=== PATIENT | female | born 1960 | race Caucasian/White ===

== ENCOUNTER → 2017-07-26 | Outpatient (CLI) | payer OTHER ==
[2017-07-26 12:41] LABS: ALT/SGPT 38 U/L (12-78); BLOOD UREA NITROGEN 20 mg/dl (7-18); BUN/CREATININE RATIO 24.6 (10-20); CALCIUM 9.4 mg/dl (8.5-10.1); CARBON DIOXIDE 28 mmol/L (21-32); CHLORIDE 101 mmol/L (98-107); CHOLESTEROL 205 mg/dl (0-200); CREATININE 0.82 mg/dl (0.60-1.20); GLUCOSE 159 mg/dl (70-99); POTASSIUM 4.1 mmol/L (3.5-5.1); SODIUM 137 mmol/L (136-145); TRIGLYCERIDES 261 mg/dl (0-150); VERY LOW DENSITY LIPOPROT CALC 52 mg/dl
[2017-07-26 12:46] LABS: ESTIMATED AVERAGE GLUCOSE 177 mg/dl; HA1C FLAG Normal (Normal)
[2017-07-26 12:50] LABS: ALB/GLOB RATIO 1.2 (0.9-2); ALKALINE PHOSPHATASE 81 U/L (45-117); AST/SGOT 20 U/L (15-37); CHOLESTEROL/HDL RATIO 6.6; HDL CHOLESTEROL 31 mg/dl; LDL CHOLESTEROL CALCULATED 122 mg/dl
[2017-07-26 13:19] LABS: RATIO 52.8 mcg/mg (0-30.0)
== END | disposition home or self-care (01) ==
LOC: C.LABBFT 10:43
PROVIDERS: ATTEND Physician Assistant
DX: E78.5 Hyperlipidemia, unspecified (principal); E11.9 Type 2 diabetes mellitus without complications

== ENCOUNTER 2021-01-03 09:10 | Observation (INO) ==
--- NOTE | 2020-12-23 12:42 | PAT Medication Instructions ---
Medication Instructions Date of Service December 23, 2020 Home Medications Medication Instructions Recorded Amanda Rojas #1 ea 12/18/20 tramadol 50 mg tablet 50 mg PO Q8H PRN #30 tab 12/18/20 tramadol 50 mg tablet 50 mg PO Q8H PRN diclofenac sodium 75 mg PO BID glipizide 10 mg PO BID losartan 50 mg PO HS metformin 850 mg PO TID omeprazole 20 mg PO HS vitamins A,C,D-dzbo-zuough [PreserVision AREDS] 1 cap PO BID ASK your surgeon for instructions diclofenac sodium 75 mg PO BID STOP taking 2 weeks before surgery If surgery is within 2 weeks, stop taking as soon as possible. vitamins A,C,M-ahlh-ochprh [PreserVision AREDS] 1 cap PO BID DO NOT take the morning of surgery glipizide 10 mg PO BID metformin 850 mg PO TID Take morning of surgery With a small sip of water, OTHERWISE NOTHING TO EAT OR DRINK AFTER MIDNIGHT: tramadol 50 mg tablet 50 mg PO Q8H PRN (if needed, may be taken up to four hours before surgery) Take evening before surgery tramadol 50 mg tablet 50 mg PO Q8H PRN (if needed) glipizide 10 mg PO BID losartan 50 mg PO HS metformin 850 mg PO TID omeprazole 20 mg PO HS Other Notes If you have any questions please call us at [phone] or [phone] or [phone] or [phone]
--- NOTE | 2020-12-24 13:46 | Anesthesiology Consultation ---
Date of Service December 24, 2020 Assessment & Plan (1) Encounter for pre-operative examination: COVID Status: As of 12/24 assessment, patient denies travel to endemic area, known exposure/sick contacts, or symptoms of COVID19. Patient advised to adhere to social distancing guidelines, wear a mask in public and avoid large crowds or unnecessary travel in the 2 weeks leading up to surgery. Preoperative COVID19 testing to be completed prior to surgery per surgeon's arrangements (01/01). Patient encouraged to be extra cautious/conscientious with COVID precautions between COVID testing and surgery. Pt is fully vaccinated. BSG AM DOS Chart Review Chart Review: Acceptable Risk for Surgery (pending chest CT 12/26) and Patient seen in Pre Admission Testing Teaching & Discussion Instructed NPO after midnight before surgery, except medications with 15 cc of water. Medication instructions provided according to the PAT guidelines. History Surgery Operation Date: 01/03/21 13:30 Proposed Procedures p Left Anterior Total Hip Replacement - Dheeraj Carlson, Height/Weight Height: 5 ft 7.5 in Weight: 110.5 kg Allergies Allergy/AdvReac Type Severity Reaction Status Date / Time No Known Allergies Allergy Unknown Verified 12/20/20 14:17 Medications Home Medications Medication Instructions Recorded Confirmed Last Taken Wheeled Walker #1 ea 12/18/20 12/18/20 Unknown tramadol 50 mg tablet 50 mg PO Q8H PRN #30 tab 12/18/20 12/20/20 Unknown diclofenac sodium 75 mg PO BID 12/20/20 12/20/20 Unknown glipizide 10 mg PO BID 12/20/20 12/20/20 Unknown losartan 50 mg PO HS 12/20/20 12/20/20 Unknown metformin 850 mg PO TID 12/20/20 12/20/20 Unknown omeprazole 20 mg PO HS 12/20/20 12/20/20 Unknown vitamins A,C,Z-qfps-woxhjq 1 cap PO BID 12/20/20 12/20/20 Unknown [PreserVision AREDS] Past Medical History Medical History Anxiety Diabetes mellitus, type 2 GERD (gastroesophageal reflux disease) Hypertension Macular degeneration Obesity Osteoarthritis Peripheral neuropathy "MILD" Exercise / Class Metabolic Activity II 4-5 Yardwork/Stairs/Walk up hill Past Family History Family History Father Family history of diabetes mellitus Past Surgical History Surgical History Family history of reaction to anesthesia NAUSEA/VOMITTING History of anesthesia reaction SLOW TO WAKE UP History of bilateral tubal ligation History of esophagogastroduodenoscopy (EGD) [place] teeth removed Past Anesthesia History No Hx of Anesthesia Complications (other than "slow to wake", no reintubation or unplanned admission) and No Family Hx of Anesthesia Complications (other than PONV) History of PONV No Hx of PONV and Hx of Motion Sickness Social History Smoking Status: Never smoker Do You Dip or Chew Tobacco: No Hx Alcohol Use: Yes alcohol intake frequency: holidays/special occasions only (few times per year) substance use type: does not use Review of Systems Pt denies any recent chest pain, shortness of breath, palpitations, fever, URI, or uncontrolled acid reflux. +seasonal allergy symptoms (cough) Physical Exam Vital Signs BP: 147/95 P: 97bpm SPO2: 94% RA T: 98.6 F R: 16 ENMT Mouth: + dental restorations (crown on upper L incisor) and + chipped teeth (few molars); no loose teeth Thyromental Distance: > or= 3.5 Finger Breadths Mallampati Class: I Neck normal visual inspection, + limited neck extension and + facial hair (hirsuit) Respiratory normal respiratory effort, lungs clear to auscultation Cardiovascular RRR, no murmur, no edema Testing Laboratory Results 12/24/20 13:58 12/24/20 13:58 PT 10.3 Seconds (9.0-12.0) 12/24/20 13:58 INR 1.0 (0.9-1.1) 12/24/20 13:58 APTT 22.5 Seconds (21.0-31.0) 12/24/20 13:58 Hemoglobin A1c 7.8 % (4.5-5.6) H 12/24/20 13:58 Blood Type A Positive 12/24/20 13:58 Antibody Screen NEGATIVE 12/24/20 13:58 Electrocardiogram Date: 12/24/20 Findings: + NSR @ (91bpm) Left axis deviation. Chest X-Ray Date: 12/24/20 FINDINGS: Lung volumes are normal. There is a possible 1.1 cm left upper lobe opacity. There is no pneumothorax or pleural effusion. Cardiac size is normal. Mediastinal contours are normal. There is no evidence for pulmonary edema. IMPRESSION: Possible 1.1 cm left upper lobe nodular opacity. This is likely artifactual however a chest CT is recommended to exclude a pulmonary nodule. ACT 112: Positive. There are findings on this exam that require communication between the performing entity and the patient following Patient Test Result Information Act ([place] Act 112) guidelines. Surgeon's office notified, they have arranged for chest CT for 12/26/20.
--- NOTE | 2020-12-24 14:18 | XRay Report ---
XR chest Pre-admission PA/Lat CLINICAL HISTORY: Preoperative evaluation. COMPARISON STUDY: No previous studies for comparison. FINDINGS: Lung volumes are normal. There is a possible 1.1 cm left upper lobe opacity. There is no pn eumothorax or pleural effusion. Cardiac size is normal. Mediastinal contours are normal. There is no evidence for pulmonary edema. IMPRESSION: Possible 1.1 cm left upper lobe nodular opacity. This is likely artifactual however a alexei st CT is recommended to exclude a pulmonary nodule. ACT 112: Positive. There are findings on this exam that require communication between the performing entity and the patient following Patient Test Result Information Act ([place] Act 112) guidelines. Electronically signed by: Jaime Haddad M.D. 12/24/2020 2:17 PM
[2020-12-24 14:28] LABS: Basophils # (auto) 0.01 K/uL (0-0.2); Basophils % (auto) 0.1 %; Eosinophils # (auto) 0.16 K/uL (0-0.5); Eosinophils % (auto) 1.7 %; Hematocrit (blood only) 40.7 % (37-47); Hemoglobin 13.8 g/dL (12.0-16.0); Immature Granulocytes # (auto) 0.03 K/uL (0.00-0.02); Immature Granulocytes % (auto) 0.3 %; Lymphocytes # (auto) 3.79 K/uL (1.2-3.4); Lymphocytes % (auto) 39.4 %; Mean Corpuscular Hemoglobin 28.9 pg (25-34); Mean Corpuscular Hgb Conc 33.9 g/dL (32-36); Mean Corpuscular Volume 85.1 fL (80-100); Mean Platelet Volume 9.6 fL (7.4-10.4); Monocytes # (auto) 0.61 K/uL (0.11-0.59); Monocytes % (auto) 6.3 %; Neutrophils # (auto) 5.03 K/uL (1.4-6.5); Neutrophils % (auto) 52.2 %; Platelet Count 260 K/uL (130-400); RDW Coefficient of Variation 13.8 % (11.5-14.5); RDW Standard Deviation 42.5 fL (36.4-46.3); Red Blood Count 4.78 M/uL (4.2-5.4); White Blood Count 9.63 K/uL (4.8-10.8)
[2020-12-24 14:41] LABS: Partial Thromboplastin Ratio 0.9; Partial Thromboplastin Time 22.5 Seconds (21.0-31.0); Prothrombin Time 10.3 Seconds (9.0-12.0)
[2020-12-24 16:20] LABS: BUN Creatinine Ratio 21.5 (10-20); Calcium 10.2 mg/dl (8.5-10.1); Creatinine Clr Calc Pharmacy 86.7 ml/min; Est GFR (African American) 82.2 ml/min; Est GFR (Non-African American) 70.9 ml/min; Potassium 4.1 mmol/L (3.5-5.1)
--- NOTE | 2020-12-24 17:10 | Electrocardiogram Report ---
Test Reason : Blood Pressure : / mmHG Vent. Rate : 091 BPM Atrial Rate : 091 BPM P-R Int : 132 ms QRS Dur : 072 ms QT Int : 374 ms P-R-T Axes : 067 -34 060 degrees QTc Int : 460 ms Normal sinus rhythm Left axis deviation Abnormal ECG Confirmed by David Vo ([id number]) on 12/24/2020 5:09:53 PM Referred By: Dheeraj Carlson Confirmed By:Marv Vo
[2020-12-25 07:30] LABS: Estimated Average Glucose 177 mg/dl; Hemoglobin A1C 7.8 % (4.5-5.6)
--- NOTE | 2021-01-02 12:54 | History & Physical Report ---
Date of Service January 02, 2021 Assessment & Plan (1) Osteoarthritis of left hip: We will proceed with a left anterior total hip arthroplasty. Postoperatively she will be started on aspirin for DVT prophylaxis and kept overnight in the hospital for postoperative medical management. She plans to use home health set up by the hospital upon discharge. History of Present Illness Chief Complaint: Osteoarthritis of the left hip . Primary Care Provider: Brady Posey PA-C Carmen is a pleasant 60-year-old female who is been doing chronic worsening left hip and groin pain. X-rays and clinical examination have been diagnostic for advanced osteoarthritis over the left hip. After failing conservative treatment, she has elected proceed with a left total hip arthroplasty. . Allergies Allergy/AdvReac Type Severity Reaction Status Date / Time No Known Allergies Allergy Unknown Verified 12/20/20 14:17 Home Medications Medication Instructions Recorded Confirmed Type Wheeled Walker #1 ea 12/18/20 12/18/20 Rx tramadol 50 mg tablet 50 mg PO Q8H PRN #30 tab 12/18/20 12/20/20 Rx diclofenac sodium 75 mg PO BID 12/20/20 12/20/20 History glipizide 10 mg PO BID 12/20/20 12/20/20 History losartan 50 mg PO HS 12/20/20 12/20/20 History metformin 850 mg PO TID 12/20/20 12/20/20 History omeprazole 20 mg PO HS 12/20/20 12/20/20 History vitamins A,C,O-ibem-nqbtso 1 cap PO BID 12/20/20 12/20/20 History [PreserVision AREDS] Past Med/Surg History Medical History Anxiety Diabetes mellitus, type 2 GERD (gastroesophageal reflux disease) Hypertension Macular degeneration Obesity Osteoarthritis Peripheral neuropathy "MILD" Surgical History Family history of reaction to anesthesia NAUSEA/VOMITTING History of anesthesia reaction SLOW TO WAKE UP History of bilateral tubal ligation History of esophagogastroduodenoscopy (EGD) [place] teeth removed Family History Father Family history of diabetes mellitus Social History Smoking Status: Never smoker Second Hand Exposure: Yes ( A CHILD); Hx Alcohol Use: Yes Preferred Language: Vietnamese Wood Heel Flap Trimmer Required: No Beliefs That Will Affect Care: None Current Living Situation: Spouse Feels Safe at Home: Yes Assistive Devices: Contacts and Glasses Review of Systems All systems reviewed & are unremarkable except as noted in HPI & below. Physical Exam On physical examination of the left hip, she walks with a antalgic gait. Her left leg is a little shorter than her right. She has pain in her groin with forced internal and external rotation. Constitutional WD/WN, vitals as above Eyes PERRL, conjunctivae normal, anicteric sclerae ENMT external ear and nose normal, oropharynx normal Neck trachea midline, no thyromegaly Respiratory normal respiratory effort Cardiovascular RRR, no murmur, no edema Gastrointestinal (Abdomen) normal bowel sounds, soft, nontender, no hepatosplenomegaly Psychiatric A+Ox3, euthymic affect Results & Data Results & Data Laboratory Results . Diagnostic Findings X-rays of the left hip do show advanced osteoarthritis with joint space narrowi ng osteophyte formation, and ejnp-ao-[id number] articulation. . PG Care Time/CCT Total # of Minutes Spent Total Time Spent with Patient: Total time spent is greater than 50% in coordination of care (as documented) at patient's floor/unit and/or counseling patient: Coding Level of Care Code None Diagnoses Osteoarthritis of left hip M16.12
[~2021-01-03 09:10] MED LIST: ACETAMINOPHEN 500 MG TAB PO SCH; BUPIVACAINE 0.5 % 5 MG/1 ML PF 10ML VIAL ONE; FAMOTIDINE 20 MG TAB PO SCH; GABAPENTIN 600 MG DOSE PO SCH; LR 500ML BOLUS, THEN 15ML/HR IV SCH; LR 60ML/HR IV SCH; ROPIVACAINE 0.5% HCL/PF 150 MG, BUPIVACAINE 0.75% MPF 20 ML, EPINEPHrine 30MG/30ML (OR ... INSTIL SCH; TRANEXAMIC ACID 1,000 MG **IV Intra-op IV SCH; TRANEXAMIC ACID 1,000 MG **IV Pre-op IV SCH; ceFAZolin 2000MG 2,000 MG/15 ML SYR IV SCH; dexAMETHasone 4 MG TAB PO SCH
[2021-01-03] MEDS ORDERED: LIDOCAINE 2% 2 ML VIAL/AMP(20MG/ML) INFIL ONE (09:37)
[2021-01-03] MEDS ORDERED: MIDAZOLAM HCL 1 MG/ML 2ML VIAL ONE (09:37)
[2021-01-03] MEDS ORDERED: ONDANSETRON INJ 2 MG/ML 2 ML VIAL ONE (09:37)
[2021-01-03] MEDS ORDERED: PROPOFOL IV EMULSION 10 MG/ML 20 ML VIAL IV ONE (09:37)
--- NOTE | 2021-01-03 10:14 | History & Physical Bridge Note ---
Date of Service January 03, 2021 History & Physical Bridge Note I have examined the patient, reviewed the History & Physical and in the interval since the performance of the History & Physical I have noted the following changes of clinical significance: no changes noted
[2021-01-03] MEDS ORDERED: KETOROLAC 30 MG/ML VIAL IV PRN (10:30)
[2021-01-03] MEDS ORDERED: ATROPINE SULFATE 0.1 MG/ML 10ML SYR IV PRN (10:30)
[2021-01-03] MEDS ORDERED: ONDANSETRON INJ 2 MG/ML 2 ML VIAL IV PRN ×2 (10:30→14:40)
[2021-01-03] MEDS ORDERED: ePHEDrine sulfate 50 MG/ML AMP IV PRN (10:30)
[2021-01-03] MEDS ORDERED: HYDROmorphone INJ 1 MG/ML SYRINGE IV PRN (10:30)
[2021-01-03] MEDS ORDERED: ORTHO JOINT ANESTHETIC ONE (10:40)
[2021-01-03] MEDS ORDERED: PHENYLEPHRINE 100MCG/ML 5ML SYR ONE (11:51)
--- NOTE | 2021-01-03 12:44 | Operative Report ---
PG Post Operative Report Pre & Post Diagnosis Operation Date: 01/03/21 11:40 Pre-Op Diagnosis: Left Hip Osteoarthritis Post-Op Diagnosis: Left Hip Osteoarthritis I identified the patient and participated in the time-out.: Yes Procedure Operation Date: 01/03/21 11:40 Actual Procedures p Left Anterior Total Hip Replacement(Left) - Dheeraj Carlson DO Surgeon Dheeraj Carlson, Building Contractor Dheeraj Carrillo PAC Estimated Blood Loss 200 Findings Consistent with Post-Op Diagnosis Specimens Right femoral head Complications none Disposition Disposition: Recovery Room Indications Carmen is a pleasant 60-year-old female who is been dealing chronic increasing left hip pain. X-rays and clinical examination been diagnostic for advanced osteoarthritis of the left hip. After failing conservative treatment, she elected proceed with a left total hip arthroplasty. Description of Procedure Implants used I used a [employer] Avenir Complete total hip arthroplasty system with a size 2 Avenir Complete collared stem, a 52 mm G7 cup with a 25mm screw, an E1 polyethylene liner, a 36 mm ceramic head with a 0 neck. Carmen arrived at the hospital for the above procedure. She was seen in the preoperative holding area and the operative extremity was identified and signed. She was given a spinal anesthetic, a preoperative antibiotic, and TXA. She was then taken back to the operating room and laid on the table in the supine position. She was given basic sedation. The operative leg was secured to a Puristst leg positioner. The hip was then prepped and draped in sterile fashion. A timeout was done and the patient and the operative extremity was properly identified. An anterior approach was used. Dissection was taken down through the fascia and the tensor muscle belly was retracted laterally and the rectus was retracted medially. The circumflex vessels were identified and ligated. The capsule was then incised and tagged for later repair. The femoral neck was then cut and the femoral head was removed. The acetabulum was exposed. Time was spent doing a complete circumferential labral release. Sequential reaming of the acetabulum up to a size 51 reamer was done. Final reamings were done under fluoroscopy to ensure appropriate version. A Biomet 52 mm G7 cup was then impacted into place. A single 25 mm screw was placed. The E1 polyethylene liner was then snapped into place. Surrounding soft tissues were then injected with 100 cc of an orthopedic pain control cocktail. The proximal femur was then exposed. Sequential broaching up to a size 2 broach was done. Off that broach a size 36 head with a 0 neck was trialed. The hip was reduced and fluoroscopic images showed anatomic alignment of the implants in acceptable length. The broach was removed. The final size 2 Avenir complete collared stem was then impacted into place. A ceramic 36 mm head with a 0 neck was then impacted onto the stem and the hip was reduced. Final fluoroscopic images showed anatomic alignment of the hip. The capsule was then closed with #1 Vicryl suture. A dilute betadyne lavage was then done for 3 minutes. The joint was then irrigated with normal saline solution. The fascia was closed with #1 PDS suture. Skin was closed with 2-0 Vicryl, margarito, and a Silverlon dressing. She was then transferred to a hospital bed and taken to the post anesthesia care unit in stable condition. She tolerated the procedure well. Dheeraj Carrillo PA-C, was present for the entire procedure. He was critical for patient positioning, prepping, draping, retraction exposure, wound closure and application of sterile dressing. I attest to the content of the Intraoperative Record and any orders documented therein. Any exceptions are noted below.
--- NOTE | 2021-01-03 12:48 | Fluoroscopy Report ---
FL hip LT 1V CLINICAL HISTORY: LEFT ANTERIOR HIP COMPARISON STUDY: May 2020 FLUOROSCOPY TIME: 15 seconds. NUMBER OF FLUOROSCOPIC IMAGES: 4 FINDINGS: 4 intraoperative fluoroscopic spot images were performed during the placement of a total le ft hip arthroplasty. The final image demonstrates a total left hip arthroplasty. There is no dislocat ion. IMPRESSION: Intraoperative fluoroscopic spot images obtained during the placement of a total left hi p arthroplasty. ACT 112: Negative or not required by law. Electronically signed by: Alexandr Mcwilliams M.D. 01/03/2021 12:47 PM
--- NOTE | 2021-01-03 14:02 | XRay Report ---
SINGLE VIEW PELVIS; SINGLE VIEW LEFT HIP CLINICAL HISTORY: Postoperative examination. FINDINGS: An AP portable view of the hips and pelvis with a crosstable lateral portable view of the l eft hip are obtained. A bipolar left hip arthroplasty is in near-anatomic alignment. No acute fractur e is identified. There are expected postoperative changes overlying the left hip including skin clips , subcutaneous gas, and soft tissue swelling. Moderate degenerative joint space narrowing is seen in the right hip. IMPRESSION: Expected postoperative findings status post left hip arthroplasty. No acute fracture is s een. ACT 112: Negative or not required by law. Electronically signed by: Aj Alegre M.D. 01/03/2021 2:00 PM
--- NOTE | 2021-01-03 14:12 | Anesthesiology Progress Note ---
Date of Service January 03, 2021 Anesthesia Post Procedure Vital Signs Vital Signs: Temp Pulse Pulse Resp BP BP Pulse Ox 01/03/21 14:00 88 12 137/78 97 01/03/21 13:45 36.4 C L 90 17 138/70 96 01/03/21 13:35 84 14 125/72 96 01/03/21 13:25 84 16 127/76 95 01/03/21 13:15 90 17 132/81 95 01/03/21 13:05 92 H 14 135/81 94 01/03/21 12:59 36.4 C L 96 H 17 131/69 94 01/03/21 09:55 37.0 C 97 H 20 161/80 H 168/102 H 96 Pain Intensity Left Hip: Pain Intensity: 0 Transfer of Care Handoff Completed per policy Notes Mental Status: alert / awake / arousable Patient Amnestic to Procedure: Yes Nausea / Vomiting: adequately controlled Pain: adequately controlled Airway Patency, RR, SpO2: stable & adequate BP & HR: stable & adequate Hydration State: stable & adequate Anesthetic Complications: no major complications apparent
[2021-01-03] MEDS ORDERED: bisacodyL 10 MG SUPP PR PRN (14:40)
[2021-01-03] MEDS ORDERED: NALOXONE HCL 0.4 MG/1 ML VIAL/CARP IV PRN (14:40)
[2021-01-03] MEDS ORDERED: oxyCODONE HCL IR 5 MG TAB (IMMEDIATE RELEASE) PO PRN (14:40)
[2021-01-03] MEDS ORDERED: MAGNESIUM HYDROXIDE SUSP 30 ML UDC PO PRN (14:40)
[2021-01-03] MEDS ORDERED: METOCLOPRAMIDE HCL INJ 5 MG/ML 2 ML VIAL IV PRN (14:40)
[2021-01-03] MEDS ORDERED: HYDROmorphone INJ 0.5 MG/0.5 ML SYR IV PRN (14:40)
[2021-01-03] MEDS: SODIUM CHLORIDE 0.9% 1000ML 1,000 ML IV SCH (15:02)
[2021-01-03] MEDS: ACETAMINOPHEN 500 MG TAB PO SCH ×2 (16:05→20:50)
[2021-01-03] MEDS: KETOROLAC 30 MG/ML VIAL IV SCH ×2 (16:05→20:50)
[2021-01-03] MEDS ORDERED: PHARMACY GLYCEMIC MGMT CONSULT PRN (16:53)
[2021-01-03] MEDS ORDERED: INSULIN GLARGINE SOLOSTAR 100 UNITS/ML 3 ML PEN SC STA (16:58)
[2021-01-03] MEDS ORDERED: CARBOHYDRATES FOR HYPOGLYCEMIA PO PRN (17:00)
[2021-01-03] MEDS ORDERED: GLUCOSE 10 TABS/TUBE PO PRN (17:00)
[2021-01-03] MEDS ORDERED: DEXTROSE 50% 50 ML SYRINGE IV PRN (17:00)
[2021-01-03] MEDS ORDERED: GLUCOSE 40% GEL 15 GM TUBE PO PRN (17:00)
[2021-01-03] MEDS ORDERED: GLUCAGON FOR INJ 1 MG VIAL IM PRN (17:00)
[2021-01-03] MEDS: INSULIN ASPART 100 UNITS/ML 3 ML PEN SC SCH ×2 (17:32→20:49)
[2021-01-03] MEDS: ceFAZolin 2000MG 2,000 MG/15 ML SYR IV SCH (18:16)
[2021-01-03] MEDS: DOCUSATE SODIUM 100 MG CAP PO SCH (20:52)
[2021-01-03] MEDS: ASPIRIN 81 MG ECTAB PO SCH (20:52)
[2021-01-03] MEDS ORDERED: SENNA 8.6 MG TAB PO SCH (21:00)
[2021-01-03] MEDS ORDERED: LOSARTAN POTASSIUM 50 MG TAB PO SCH (21:00)
[2021-01-03] MEDS ORDERED: PANTOprazole 40 MG TAB PO SCH (21:00)
[2021-01-04] MEDS: SODIUM CHLORIDE 0.9% 1000ML 1,000 ML IV SCH (01:06)
[2021-01-04] MEDS: ACETAMINOPHEN 500 MG TAB PO SCH ×2 (03:31→14:36)
[2021-01-04] MEDS: ceFAZolin 2000MG 2,000 MG/15 ML SYR IV SCH (03:31)
[2021-01-04] MEDS: KETOROLAC 30 MG/ML VIAL IV SCH ×2 (03:31→09:16)
--- NOTE | 2021-01-04 07:38 | Orthopedic Progress Note ---
Date of Service January 04, 2021 Assessment & Plan (1) Status post left hip replacement: Overall she is doing very well. She is having much pain in the left hip. She was seen by physical therapy today for ambulation and range of motion exercises. She is on aspirin for DVT prophylaxis. She can be discharged home later today. She will follow-up with orthopedics in 2 weeks. eJthro Morales was seen and examined at bedside this morning. Overall she is doing very well. She denies any pain in the left hip. She has been up and ambulating to the bathroom. She has no complaints.. Review of Systems All systems reviewed & are unremarkable except as noted in HPI & below. Physical Exam On physical examination of the left hip, the dressing is clean and dry. Her leg lengths are equal. She has active dorsiflexion plantarflexion of her left ankle. Sensation is intact throughout.. Results & Data Results & Data Laboratory Results . Diagnostic Findings Postoperative x-rays of the left hip show the prosthesis to be in anatomic alignment without any evidence of fracture, dislocation, or loosening. PG Care Time/CCT Total # of Minutes Spent Total Time Spent with Patient: Total time spent is greater than 50% in coordination of care (as documented) at patient's floor/unit and/or counseling patient: Coding Level of Care Code 23617 Post Operative Follow-Up Diagnoses Status post left hip replacement Z96.642
--- NOTE | 2021-01-04 07:39 | Discharge Summary ---
Date of Service January 04, 2021 Admission HPI (Per Admitting) Carmen is a pleasant 60-year-old female who is been doing chronic worsening left hip and groin pain. X-rays and clinical examination have been diagnostic for advanced osteoarthritis over the left hip. After failing conservative treatment, she has elected proceed with a left total hip arthroplasty. . Admission Exam (Per Admitting) On physical examination of the left hip, she walks with a antalgic gait. Her left leg is a little shorter than her right. She has pain in her groin with forced internal and external rotation. Principal Diagnosis Same as "Discharge Diagnosis" noted below under Discharge Instructions. Discharge Exam On physical examination of the left hip, the dressing is clean and dry. Her leg lengths are equal. She has active dorsiflexion plantarflexion of her left ankle. Sensation is intact throughout.. Discharge Data Procedures Performed Operation Date: 01/03/21 11:40 Actual Procedures p Left Anterior Total Hip Replacement(Left) - Dheeraj Carlson DO Ordered Studies 01/03/21 11:40 FL hip LT 1V Routine Hospital Course (1) Status post left hip replacement: On January 03, 2021 Carmen arrived at [facility] and underwent a left anterior total hip arthroplasty without complication. She had a spinal a nesthetic. Postoperatively she was started on aspirin for DVT prophylaxis and transferred to the general orthopedic floors. Her hospital course was uneventful. On postop day #1 her vital signs were stable and her pain was well controlled. She was able to participate well with physical therapy doing ambulation and range of motion exercises. She was then discharged home. She will follow-up with orthopedics in 2 weeks. PG Care Time/CCT Total # of Minutes Spent Total Time Spent with Patient: Total time spent is greater than 50% in coordination of care (as documented) at patient's floor/unit and/or counseling patient: Discharge Plan Discharge Items Patient Disposition: Home - Home Health Services Reason For Visit: Left Hip Osteoarthritis Discharge Diagnosis: Left hip replacement Activity: As commented below Non-emergency contact: Surgeon Call non-emergency contact if: your wound has increased redness and your wound has increased drainage Follow-up/Referrals: Brady Posey PA-C [Primary Care Provider] - Diet: Carb Consistent or DM2 Addtl Attending Provider Instructions: Activity and Therapy Recommendations: * If you are using [facility] then therapy will be provided at your home until they feel you have accomplished all of your goals. * If you are using [facility] then Physical Therapy will be provided until they feel you are ready to start Outpatient Physical Therapy. * If you are not using home therapy then Outpatient Physical Therapy should start about 3-5 days from your day of surgery. Therapy will last about 6-10 weeks * You were shown a series of exercises in the hospital. Do these exercises three times each day including the exercises you were shown in physical therapy. * Get up and walk several times each day.~ For the first four weeks, try not to stand or walk for more than one hour at a time. If you do stand or walk for more than one hour, you will not hurt anything, but your leg will likely swell.~~ * As you feel comfortable, you may change from the walker or crutches to a cane and~then to independent walking. Medications: * Narcotic You will likely be sent home from the hospital with a prescription for the narcotic pain medication that worked best throughout your stay. * Aspirin Most patients will be required to take Aspirin 81mg twice a day for 6 weeks after surgery. This is obtained [id number] and a prescription is not necessary. * Other medications may be prescribed for specific circumstances. If you have any questions, please call the office at . * Resume previous home medications unless otherwise instructed TEDs/Elastic Stockings: The white elastic stockings help limit swelling and prevent blood clots from forming in your legs. The more you wear them, the more they work. Wear them for six weeks. Dressing Care: Leave the Silverlon dressing in place for 7 days. After 7 days you may remove the dressing. If the incision is not draining then you may leave the margarito open to air. If there is a little bit of drainage or if the margarito are getting stuck on your clothing then cover the incision with a dry dressing. The margarito will be removed at your 2 week follow-up appointment. Showering: You may shower with the Silverlon dressing in place. Do not let the shower spray hit the dressing directly. Pat the Silverlon dressing dry. If the dressing becomes wet underneath, then simply remove the dressing. Keep the incision dry until you are 7 days out from the day of surgery. After 7 days you may remove the Silverlon dressing and shower with the margarito exposed. Let soapy water run over the margarito and pat them dry. Do not scrub or soak the incision. Things To Watch For: * Drainage from the incision site that occurs more than one week after your surgery. * Increased redness at the incision site. * Fever above 102 degrees Fahrenheit. * Unusual chest pain or shortness of breath. * Call [facility] at with any of the above problems Follow-Up Visit: Follow-up with Dr. Carlson's PA (Dheeraj Carrillo) 2-3 weeks after your day of surgery. He will remove your margarito and answer any questions. If you have any additional questions or concerns, Dr Carlson is usually in the office at the same time and will be available An appointment was probably scheduled when you signed-up for surgery in the office. If you have any questions call Office Instructions: More detailed instructions as well as Frequently Asked Questions were provided in a folder by our office when you signed-up for surgery. Please review these instructions when you get home. If you have any further questions or concerns, please feel free to call the office at [phone] Pending Studies at Discharge: No Stand-Alone Forms: [facility] Medications and DC Order Prescriptions: New aspirin 81 mg Tablet,Delayed Release (Dr/Ec) 81 mg PO BID 42 Days Qty: 84 RF: 0 oxycodone 5 mg Tablet 5 mg PO Q4H PRN (Reason: pain) Qty: 30 RF: 0 Continued tramadol 50 mg tablet 50 mg PO Q8H PRN (Reason: pain) Qty: 30 RF: 0 (DME) Wheeled Walker Misc See Rx Instructions .MEDSUPPLY Qty: 1 RF: 0 losartan 50 mg Tablet 50 mg PO HS RF: 0 glipizide 10 mg Tablet 10 mg PO BID RF: 0 metformin 850 mg Tablet 850 mg PO TID RF: 0 omeprazole 20 mg Capsule,Delayed Release(Dr/Ec) 20 mg PO HS RF: 0 diclofenac sodium 75 mg Tablet,Delayed Release (Dr/Ec) 75 mg PO BID RF: 0 PreserVision AREDS [id number] Capsule 1 cap PO BID RF: 0 Discharge Orders: Discharge Order (Routine); Ordered 01/04/21 Ordered By: Dheeraj Carlson Admission Data Admit Date/Time: 01/03/21 13:06 Attending Provider: Dheeraj Carlson Admit Provider: Dheeraj Carlson Primary Care Provider: Brady Posey
[2021-01-04] MEDS ORDERED: MULTIVITAMIN TAB PO SCH (09:00)
[2021-01-04] MEDS: ASPIRIN 81 MG ECTAB PO SCH (09:16)
[2021-01-04] MEDS: DOCUSATE SODIUM 100 MG CAP PO SCH (09:16)
[2021-01-04] MEDS: INSULIN ASPART 100 UNITS/ML 3 ML PEN SC SCH ×2 (09:16→12:38)
[2021-01-04] MEDS: metFORMIN HCL 850 MG TAB PO SCH ×2 (09:18→12:38)
== END 2021-01-04 15:19 | disposition home health service (06) ==
LOC: ASU 09:10 → 3E 09:10

== ENCOUNTER 2022-04-09 10:45 | Observation (INO) ==
[2022-04-09] MEDS ORDERED: ASPIRIN CHEW 324 MG PO STA (11:42)
[2022-04-09] MEDS ORDERED: NITROGLYCERIN 2% OINTMENT 30GM TUBE EXT STA (11:42)
--- NOTE | 2022-04-09 11:53 | Emergency Department Note ---
History of Present Illness General Chief complaint: Hypertension Stated complaint: HIGH BLOOD PRESSURE, TIGHNESS IN CHEST Time Seen by Provider: 04/09/22 11:32 Source: patient History of Present Illness Provider complaint: High blood pressure and chest discomfort Onset (ago): day(s) 2 Location: chest Radiation: back Pain Consistency: + intermittent Quality: + other ("Muscle pain") Relieved By: + other (Rubbing on her chest and Xanax) Associated symptoms: no cough, no diaphoresis, no fever/chills, no headaches, no malaise, no nausea/vomiting, no shortness of breath or no weakness This is a 62-year-old female who presents with elevated blood pressures and chest pain intermittently since yesterday. The patient states that yesterday she was not feeling well so she took her blood pressure and was 170/110. She states over the summer its been running on the high side at about 140s. She was anxious and so she took her Xanax and her blood pressure came down to the 130s. At the same time she had developed chest discomfort which she has difficulty describing. She said that it feels like a muscle pain and is better when she rubs her chest. It does radiate to her back. She had no associated shortness of breath or diaphoresis or nausea. Her chest discomfort went away after her blood pressure came down. She made an appointment to see her doctor but decided to cancel it and come here today as she had another episode of not feeling well and her blood pressure was again elevated with a diastolic over 110. Again she developed the chest discomfort which she has difficulty describing. She has no shortness of breath, diaphoresis, lightheadedness or nausea. She denies any fever, cough or cold symptoms, abdominal pain, vomiting, diarrhea or urinary symptoms. She denies any leg pain or swelling. She does have a history of high cholesterol. She is compliant with her medications. She states that she had an illness in the spring of this year but tested negative for COVID. She had an EKG at that time which showed left atrial enlargement and they wanted to do a stress echocardiogram on her but she never followed up with them. She denies any family history of CAD. She never smoked. Home Medications Medication Instructions Recorded Confirmed Type Wheeled Walker #1 ea 12/18/20 04/09/22 Rx diclofenac sodium 75 mg 75 mg PO BID 12/20/20 04/09/22 History tablet,delayed release glipizide 10 mg tablet 10 mg PO BID 12/20/20 04/09/22 History omeprazole 20 mg capsule,delayed 20 mg PO HS 12/20/20 04/09/22 History release vitamins A,C,X-zcrh-reckdt 14,320 1 cap PO BID 12/20/20 04/09/22 History unit-226 mg-200 unit capsule (PreserVision AREDS) alprazolam 0.25 mg tablet 0.25 mg PO BID PRN Anxiety 04/09/22 04/09/22 History loratadine 10 mg tablet 10 mg PO DAILY 04/09/22 04/09/22 History losartan 100 mg tablet 100 mg PO HS 04/09/22 04/09/22 History metformin 500 mg tablet,extended 1,000 mg PO BID 04/09/22 04/09/22 History release 24hr semaglutide 0.25 mg or 0.5 mg (2 0.25 mg subcut WK 04/09/22 04/09/22 History mg/1.5 mL) subcutaneous pen injector (Ozempic) Allergies Allergy/AdvReac Type Severity Reaction Status Date / Time No Known Allergies Allergy Unknown Verified 04/09/22 15:16 Past Med/Surg History Medical History (Updated 04/09/22 @ 15:14 by Cuong Arizmendi MD) Anxiety Diabetes mellitus, type 2 GERD (gastroesophageal reflux disease) Hypertension Macular degeneration Obesity Osteoarthritis Peripheral neuropathy "MILD" Surgical History Family history of reaction to anesthesia NAUSEA/VOMITTING History of anesthesia reaction SLOW TO WAKE UP History of bilateral tubal ligation History of esophagogastroduodenoscopy (EGD) [place] teeth removed Family History Father Family history of diabetes mellitus Social History Smoking Status: Never smoker Second Hand Exposure: Yes ( A CHILD); Hx Alcohol Use: Yes Preferred Language: Sinhala Communication Ability: Effective Waste Duster Required: No Beliefs That Will Affect Care: None Current Living Situation: Spouse Feels Safe at Home: Yes Assistive Devices: Glasses and Walker Review of Systems See HPI for pertinent positives & negatives. and A total of 10 systems reviewed and were otherwise negative Physical Exam Vital Signs Vital Signs - 24 hr 04/09/22 11:23 04/09/22 11:41 04/09/22 11:42 Temperature 36.2 C L Temperature Source Temporal Artery Scan Pulse Rate 110 H 106 H Pulse Rate [Apical] Pulse Rate from SpO2 Sensor 106 H Pulse Rhythm Pulse Rhythm [Apical] Pulse Strength [Apical] Respiratory Rate 20 10 L Respiratory Effort / Characteristics Non-Labored Respiratory Depth Normal Respiratory Pattern Blood Pressure 205/116 H 194/125 H Blood Pressure [Right Arm] Blood Pressure Mean 145 148 Blood Pressure Mean [Right Arm] Blood Pressure Position [Right Arm] Pulse Oximetry 96 96 Oxygen Delivery Method Room Air Oxygen Flow Rate Sepsis Recent Fever Within 48 Hours No Sepsis New/Unexplained Change in Mental Status N/A Sepsis Action Taken by Nursing No Action Required 04/09/22 10:45 04/09/22 11:42 04/09/22 11:50 Temperature Temperature Source Pulse Rate 108 H 102 H Pulse Rate [Apical] 115 H Pulse Rate from SpO2 Sensor 102 H Pulse Rhythm Regular Pulse Rhythm [Apical] Regular Pulse Strength [Apical] Normal Respiratory Rate 20 19 12 Respiratory Effort / Characteristics Non-Labored Respiratory Depth Normal Respiratory Pattern Regular Blood Pressure Blood Pressure [Right Arm] 167/103 H Blood Pressure Mean Blood Pressure Mean [Right Arm] 124 Blood Pressure Position [Right Arm] Lying Pulse Oximetry 98 94 96 Oxygen Delivery Method Room Air Room Air Oxygen Flow Rate 0 Sepsis Recent Fever Within 48 Hours Sepsis New/Unexplained Change in Mental Status Sepsis Action Taken by Nursing 04/09/22 12:00 04/09/22 12:00 04/09/22 12:10 Temperature Temperature Source Pulse Rate 108 H 105 H Pulse Rate [Apical] Pulse Rate from SpO2 Sensor 107 H 106 H Pulse Rhythm Pulse Rhythm [Apical] Pulse Strength [Apical] Respiratory Rate 18 13 Respiratory Effort / Characteristics Respiratory Depth Respiratory Pattern Blood Pressure 169/111 H Blood Pressure [Right Arm] Blood Pressure Mean 130 Blood Pressure Mean [Right Arm] Blood Pressure Position [Right Arm] Pulse Oximetry 96 94 Oxygen Delivery Method Oxygen Flow Rate Sepsis Recent Fever Within 48 Hours Sepsis New/Unexplained Change in Mental Status Sepsis Action Taken by Nursing 04/09/22 12:19 04/09/22 12:19 04/09/22 12:20 Temperature Temperature Source Pulse Rate 104 H 108 H Pulse Rate [Apical] Pulse Rate from SpO2 Sensor 105 H 108 H Pulse Rhythm Pulse Rhythm [Apical] Pulse Strength [Apical] Respiratory Rate 13 15 Respiratory Effort / Characteristics Respiratory Depth Respiratory Pattern Blood Pressure 177/108 H Blood Pressure [Right Arm] Blood Pressure Mean 131 Blood Pressure Mean [Right Arm] Blood Pressure Position [Right Arm] Pulse Oximetry 96 95 Oxygen Delivery Method Oxygen Flow Rate Sepsis Recent Fever Within 48 Hours Sepsis New/Unexplained Change in Mental Status Sepsis Action Taken by Nursing 04/09/22 12:22 04/09/22 12:22 04/09/22 12:25 Temperature Temperature Source Pulse Rate 109 H 105 H Pulse Rate [Apical] Pulse Rate from SpO2 Sensor 109 H 106 H Pulse Rhythm Pulse Rhythm [Apical] Pulse Strength [Apical] Respiratory Rate 12 18 Respiratory Effort / Characteristics Respiratory Depth Respiratory Pattern Blood Pressure 148/111 H Blood Pressure [Right Arm] Blood Pressure Mean 123 Blood Pressure Mean [Right Arm] Blood Pressure Position [Right Arm] Pulse Oximetry 95 95 Oxygen Delivery Method Oxygen Flow Rate Sepsis Recent Fever Within 48 Hours Sepsis New/Unexplained Change in Mental Status Sepsis Action Taken by Nursing 04/09/22 12:25 04/09/22 12:30 04/09/22 12:30 Temperature Temperature Source Pulse Rate 111 H Pulse Rate [Apical] Pulse Rate from SpO2 Sensor 110 H Pulse Rhythm Pulse Rhythm [Apical] Pulse Strength [Apical] Respiratory Rate 13 Respiratory Effort / Characteristics Respiratory Depth Respiratory Pattern Blood Pressure 168/99 H 161/129 H Blood Pressure [Right Arm] Blood Pressure Mean 122 139 Blood Pressure Mean [Right Arm] Blood Pressure Position [Right Arm] Pulse Oximetry 95 Oxygen Delivery Method Oxygen Flow Rate Sepsis Recent Fever Within 48 Hours Sepsis New/Unexplained Change in Mental Status Sepsis Action Taken by Nursing 04/09/22 12:35 04/09/22 12:35 04/09/22 12:40 Temperature Temperature Source Pulse Rate 107 H Pulse Rate [Apical] Pulse Rate from SpO2 Sensor 107 H Pulse Rhythm Pulse Rhythm [Apical] Pulse Strength [Apical] Respiratory Rate 18 Respiratory Effort / Characteristics Respiratory Depth Respiratory Pattern Blood Pressure 189/105 H 161/113 H Blood Pressure [Right Arm] Blood Pressure Mean 133 129 Blood Pressure Mean [Right Arm] Blood Pressure Position [Right Arm] Pulse Oximetry 95 Oxygen Delivery Method Oxygen Flow Rate Sepsis Recent Fever Within 48 Hours Sepsis New/Unexplained Change in Mental Status Sepsis Action Taken by Nursing 04/09/22 12:40 04/09/22 12:45 04/09/22 12:45 Temperature Temperature Source Pulse Rate 112 H 107 H Pulse Rate [Apical] Pulse Rate from SpO2 Sensor 114 H 107 H Pulse Rhythm Pulse Rhythm [Apical] Pulse Strength [Apical] Respiratory Rate 12 13 Respiratory Effort / Characteristics Respiratory Depth Respiratory Pattern Blood Pressure 170/110 H Blood Pressure [Right Arm] Blood Pressure Mean 130 Blood Pressure Mean [Right Arm] Blood Pressure Position [Right Arm] Pulse Oximetry 95 94 Oxygen Delivery Method Oxygen Flow Rate Sepsis Recent Fever Within 48 Hours Sepsis New/Unexplained Change in Mental Status Sepsis Action Taken by Nursing 04/09/22 12:50 04/09/22 12:50 04/09/22 12:55 Temperature Temperature Source Pulse Rate 113 H 113 H Pulse Rate [Apical] Pulse Rate from SpO2 Sensor 111 H 114 H Pulse Rhythm Pulse Rhythm [Apical] Pulse Strength [Apical] Respiratory Rate 12 13 Respiratory Effort / Characteristics Respiratory Depth Respiratory Pattern Blood Pressure 165/111 H Blood Pressure [Right Arm] Blood Pressure Mean 129 Blood Pressure Mean [Right Arm] Blood Pressure Position [Right Arm] Pulse Oximetry 96 95 Oxygen Delivery Method Oxygen Flow Rate Sepsis Recent Fever Within 48 Hours Sepsis New/Unexplained Change in Mental Status Sepsis Action Taken by Nursing 04/09/22 12:55 04/09/22 13:00 04/09/22 13:00 Temperature Temperature Source Pulse Rate 111 H Pulse Rate [Apical] Pulse Rate from SpO2 Sensor 112 H Pulse Rhythm Pulse Rhythm [Apical] Pulse Strength [Apical] Respiratory Rate 14 Respiratory Effort / Characteristics Respiratory Depth Respiratory Pattern Blood Pressure 163/110 H 167/103 H Blood Pressure [Right Arm] Blood Pressure Mean 127 124 Blood Pressure Mean [Right Arm] Blood Pressure Position [Right Arm] Pulse Oximetry 94 Oxygen Delivery Method Oxygen Flow Rate Sepsis Recent Fever Within 48 Hours Sepsis New/Unexplained Change in Mental Status Sepsis Action Taken by Nursing 04/09/22 13:10 04/09/22 13:20 04/09/22 13:30 Temperature Temperature Source Pulse Rate 110 H 114 H Pulse Rate [Apical] Pulse Rate from SpO2 Sensor 110 H 114 H Pulse Rhythm Pulse Rhythm [Apical] Pulse Strength [Apical] Respiratory Rate 15 19 Respiratory Effort / Characteristics Respiratory Depth Respiratory Pattern Blood Pressure 168/103 H Blood Pressure [Right Arm] Blood Pressure Mean 124 Blood Pressure Mean [Right Arm] Blood Pressure Position [Right Arm] Pulse Oximetry 95 93 Oxygen Delivery Method Oxygen Flow Rate Sepsis Recent Fever Within 48 Hours Sepsis New/Unexplained Change in Mental Status Sepsis Action Taken by Nursing 04/09/22 13:30 04/09/22 13:40 04/09/22 13:50 Temperature Temperature Source Pulse Rate 112 H 114 H 114 H Pulse Rate [Apical] Pulse Rate from SpO2 Sensor 111 H 112 H 114 H Pulse Rhythm Pulse Rhythm [Apical] Pulse Strength [Apical] Respiratory Rate 13 15 13 Respiratory Effort / Characteristics Respiratory Depth Respiratory Pattern Blood Pressure Blood Pressure [Right Arm] Blood Pressure Mean Blood Pressure Mean [Right Arm] Blood Pressure Position [Right Arm] Pulse Oximetry 92 96 94 Oxygen Delivery Method Oxygen Flow Rate Sepsis Recent Fever Within 48 Hours Sepsis New/Unexplained Change in Mental Status Sepsis Action Taken by Nursing 04/09/22 14:00 04/09/22 14:00 04/09/22 14:10 Temperature Temperature Source Pulse Rate 109 H 115 H Pulse Rate [Apical] Pulse Rate from SpO2 Sensor 110 H 117 H Pulse Rhythm Pulse Rhythm [Apical] Pulse Strength [Apical] Respiratory Rate 15 24 Respiratory Effort / Characteristics Respiratory Depth Respiratory Pattern Blood Pressure 159/98 H Blood Pressure [Right Arm] Blood Pressure Mean 118 Blood Pressure Mean [Right Arm] Blood Pressure Position [Right Arm] Pulse Oximetry 94 94 Oxygen Delivery Method Oxygen Flow Rate Sepsis Recent Fever Within 48 Hours Sepsis New/Unexplained Change in Mental Status Sepsis Action Taken by Nursing 04/09/22 14:20 04/09/22 14:30 04/09/22 14:30 Temperature Temperature Source Pulse Rate 112 H 108 H Pulse Rate [Apical] Pulse Rate from SpO2 Sensor 113 H 108 H Pulse Rhythm Pulse Rhythm [Apical] Pulse Strength [Apical] Respiratory Rate 15 14 Respiratory Effort / Characteristics Respiratory Depth Respiratory Pattern Blood Pressure 152/97 H Blood Pressure [Right Arm] Blood Pressure Mean 115 Blood Pressure Mean [Right Arm] Blood Pressure Position [Right Arm] Pulse Oximetry 93 93 Oxygen Delivery Method Oxygen Flow Rate Sepsis Recent Fever Within 48 Hours Sepsis New/Unexplained Change in Mental Status Sepsis Action Taken by Nursing 04/09/22 14:40 04/09/22 14:50 04/09/22 15:00 Temperature Temperature Source Pulse Rate 109 H 106 H Pulse Rate [Apical] Pulse Rate from SpO2 Sensor 111 H 106 H Pulse Rhythm Pulse Rhythm [Apical] Pulse Strength [Apical] Respiratory Rate 18 15 Respiratory Effort / Characteristics Respiratory Depth Respiratory Pattern Blood Pressure 162/102 H Blood Pressure [Right Arm] Blood Pressure Mean 122 Blood Pressure Mean [Right Arm] Blood Pressure Position [Right Arm] Pulse Oximetry 93 94 Oxygen Delivery Method Oxygen Flow Rate Sepsis Recent Fever Within 48 Hours Sepsis New/Unexplained Change in Mental Status Sepsis Action Taken by Nursing 04/09/22 15:00 04/09/22 15:10 Temperature Temperature Source Pulse Rate 107 H 113 H Pulse Rate [Apical] Pulse Rate from SpO2 Sensor 111 H 115 H Pulse Rhythm Pulse Rhythm [Apical] Pulse Strength [Apical] Respiratory Rate 15 19 Respiratory Effort / Characteristics Respiratory Depth Respiratory Pattern Blood Pressure Blood Pressure [Right Arm] Blood Pressure Mean Blood Pressure Mean [Right Arm] Blood Pressure Position [Right Arm] Pulse Oximetry 95 95 Oxygen Delivery Method Oxygen Flow Rate Sepsis Recent Fever Within 48 Hours Sepsis New/Unexplained Change in Mental Status Sepsis Action Taken by Nursing Constitutional: Vital signs reviewed. Hypertensive. Eyes: Pupils are equal round reactive to light. Conjunctiva are noninjected. ENT: Pharynx is clear without erythema or exudate. Mucous membranes are moist. Neck supple without meningeal signs. Respiratory: Tachycardic. Regular rhythm. Heart rate 106. Cardiovascular: Regular rate and rhythm. No rubs or gallops. GI: Soft, nondistended and nontender. Bowel sounds are present. Musculoskeletal: No peripheral edema. No lower extremity tenderness. Some chest wall tenderness, but she states that she had been rubbing her chest prior to this. Integumentary: No cyanosis. or jaundice. Neurological: The patient is awake and alert. No focal deficits. Psychiatric: Anxious. Course Administered Medications Discontinued Medications Aspirin (Aspirin Chew 324 Mg) 324 mg PO NOW STA Stop: 04/09/22 11:43 Last Admin: 04/09/22 12:20 Dose: 243 mg Documented By: ISSA Nitroglycerin (Nitroglycerin 2% Ointment 30gm Tube) 1 inch EXT NOW STA Stop: 04/09/22 11:43 Last Admin: 04/09/22 12:19 Dose: 1 inch Documented By: ISSA Medical Decision Making Differential Diagnosis Hypertensive urgency, anxiety, panic attack, unstable angina, IA Medical Records Attestation: I reviewed the patient's medical records. I did perform a limited focused review of portions of the patient's old chart on the electronic medical record. The patient has had no recent pertinent visits to this hospital. She did have a hip replacement a year ago. Home Medications Current Medication List: was personally reviewed by me Laboratory Data Attestation: I reviewed the patient's lab results. Result diagrams: 04/09/22 12:03 04/09/22 12:03 Lab Results 04/09/22 04/09/22 04/09/22 Range/Units 12:03 12:03 12:03 WBC 7.80 (4.8-10.8) K/ul RBC 4.58 (3.93-5.22) M/uL Hgb 12.9 (12.0-16.0) g/dl Hct 39.0 (34.1-44.9) % MCV 85.2 (80.0-100.0) fL MCH 28.2 (25.0-34.0) pg MCHC 33.1 (32.0-36.0) g/dL RDW Std Deviation 41.3 (36.4-46.3) fL RDW Coeff of Joel 13.5 (11.5-14.5) % Plt Count 239 (130-400) K/uL MPV 9.7 (9.4-12.3) fL Immature Gran % (Auto) 0.6 % Neut % (Auto) 55.5 % Lymph % (Auto) 35.5 % White % (Auto) 7.1 % Eos % (Auto) 1.0 % Baso % (Auto) 0.3 % Neut # (Auto) 4.33 (1.4-6.5) K/uL Lymph # (Auto) 2.77 (1.2-3.4) K/uL White # (Auto) 0.55 (0.24-0.82) K/uL Eos # (Auto) 0.08 (0-0.50) K/uL Baso # (Auto) 0.02 (0-0.2) K/uL Immature Gran # (Auto) 0.05 H (0.00-0.02) K/uL D-Dimer 470 (0-500) ug/L FEU Sodium 139 (136-145) mmol/L Potassium 4.2 (3.5-5.1) mmol/L Chloride 104 (98-107) mmol/L Carbon Dioxide 24 (21-32) mmol/L Anion Gap 11 (3-11) BUN 15 (6-23) mg/dl Creatinine 0.62 (0.6-1.2) mg/dl Est Cr Clr Drug Dosing 120.9 ml/min Est GFR ( Amer) 111.2 ml/min Est GFR (Non-Af Amer) 96.0 ml/min BUN/Creatinine Ratio 24.2 H (10-20) Glucose 152 H (70-99(Fasting)) mg/dl Calcium 9.9 (8.5-10.1) mg/dl Total Bilirubin 0.4 (0.2-1.0) mg/dl AST 15 (13-39) U/L ALT 19 (7-52) U/L Alkaline Phosphatase 74 (34-104) U/L Troponin I High Sens 6.3 (0-14) pg/ml Total Protein 7.0 (6.0-8.3) gm/dl Albumin 4.3 (3.4-5.0) gm/dl Globulin 2.7 (2.5-4.0) gm/dl Albumin/Globulin Ratio 1.6 (0.9-2) Lipase 33 (11-82) U/L SARS-CoV-2, RNA, NAAT (NEGATIVE) 04/09/22 Range/Units 14:14 WBC (4.8-10.8) K/ul RBC (3.93-5.22) M/uL Hgb (12.0-16.0) g/dl Hct (34.1-44.9) % MCV (80.0-100.0) fL MCH (25.0-34.0) pg MCHC (32.0-36.0) g/dL RDW Std Deviation (36.4-46.3) fL RDW Coeff of Joel (11.5-14.5) % Plt Count (130-400) K/uL MPV (9.4-12.3) fL Immature Gran % (Auto) % Neut % (Auto) % Lymph % (Auto) % White % (Auto) % Eos % (Auto) % Baso % (Auto) % Neut # (Auto) (1.4-6.5) K/uL Lymph # (Auto) (1.2-3.4) K/uL White # (Auto) (0.24-0.82) K/uL Eos # (Auto) (0-0.50) K/uL Baso # (Auto) (0-0.2) K/uL Immature Gran # (Auto) (0.00-0.02) K/uL D-Dimer (0-500) ug/L FEU Sodium (136-145) mmol/L Potassium (3.5-5.1) mmol/L Chloride (98-107) mmol/L Carbon Dioxide (21-32) mmol/L Anion Gap (3-11) BUN (6-23) mg/dl Creatinine (0.6-1.2) mg/dl Est Cr Clr Drug Dosing ml/min Est GFR ( Amer) ml/min Est GFR (Non-Af Amer) ml/min BUN/Creatinine Ratio (10-20) Glucose (70-99(Fasting)) mg/dl Calcium (8.5-10.1) mg/dl Total Bilirubin (0.2-1.0) mg/dl AST (13-39) U/L ALT (7-52) U/L Alkaline Phosphatase (34-104) U/L Troponin I High Sens (0-14) pg/ml Total Protein (6.0-8.3) gm/dl Albumin (3.4-5.0) gm/dl Globulin (2.5-4.0) gm/dl Albumin/Globulin Ratio (0.9-2) Lipase (11-82) U/L SARS-CoV-2, RNA, NAAT NEGATIVE (NEGATIVE) Imaging Data Radiologist's Impression: Chest X-Ray 04/09/22 11:42 XR chest 1V portable CLINICAL HISTORY: Atypical chest pain. COMPARISON STUDY: Chest radiograph December 24, 2020. Chest CT December 26, 2020. FINDINGS: Lung volumes are mildly diminished. Hypoventilatory study. No pneumothorax or pleural effusion is present. There is no consolidation to suggest pneumonia. Cardiac size is at the upper limits of normal. No evidence for overt pulmonary edema. IMPRESSION: No acute cardiopulmonary findings. ACT 112: Negative or not required by law. Electronically signed by: Jaime Haddad M.D. 04/09/2022 12:43 PM ECG Data Attestation: I personally reviewed and interpreted this ECG as follows: Indication: + chest pain Rate (beats per minute): 105 Rhythm: + sinus tachycardia ECG [place]: + Left axis deviation ECG ST segments: no ST elevation ECG Findings: + Other (Left atrial enlargement); no PVCs Comparison ECG Date: from (December 24, 2020) Change: no significant change MDM Narrative I did evaluate the patient as noted above. The patient is presenting with elevated blood pressures and chest discomfort over the past 2 days. Her symptoms are better after she takes her Xanax. She does have a longstanding history of anxiety and is anxious here today. She had an abnormal EKG in the spring of this year and was supposed to have a stress echocardiogram but she never followed up. IV access was established. I did treat her with aspirin p.o. She was also given nitroglycerin 1 inch to the anterior chest wall. I did place an order for continuous cardiac monitoring. The monitor showed sinus tachycardia at a rate of 101 bpm. I did order and personally review the patient's 12-lead EKG as described above. She has no acute ischemic changes. I did order and personally reviewed the images of the patient's chest x-ray as described above. There is no acute process within the chest or lungs. I did order and review the patient's blood work as noted in the electronic medical record. CBC is unremarkable without leukocytosis or anemia. D-dimer is negative at 470. CMP is unremarkable other than a glucose of 152. High- sensitivity troponin is negative. Lipase is 33. I did reassess the patient. Her blood pressure is significantly improved but still elevated. She states that her chest pain is now gone. She is still tachycardic but states that she is anxious. She denies any shortness of breath. I did discuss the test results with her and her as well as the limitations of the work-up done here in the emergency department. She will be hospitalized for further care and evaluation. I did discuss case with the hospitalist and community case manager. Impression & Plan Chest pain, Tachycardia, Hypertensive urgency, Abnormal ECG Discharge Plan Visit Data Chief Complaint: Hypertension Stated Complaint: HIGH BLOOD PRESSURE, TIGHNESS IN CHEST ED Provider: Cuong Arizmendi Discharge Problem: Chest pain, Tachycardia, Hypertensive urgency, Abnormal ECG Patient Disposition: Being Evaluated by Hospitalist Forms Stand Alone Forms: My [facility] [employer] Prescriptions Prescriptions: No Action (DME) Amanda Puente See Rx Instructions .MEDSUPPLY Qty: 1 0RF Rx Instructions: As directed glipizide 10 mg Tablet 10 mg PO BID omeprazole 20 mg Capsule,Delayed Release(Dr/Ec) 20 mg PO HS diclofenac sodium 75 mg Tablet,Delayed Release (Dr/Ec) 75 mg PO BID PreserVision AREDS [id number] Capsule 1 cap PO BID losartan 100 mg Tablet 100 mg PO HS metformin 500 mg Tablet Extended Release 24hr 1,000 mg PO BID Ozempic 0.25 mg or 0.5 mg(2 mg/1.5 mL) Pen Injector 0.25 mg SUBCUT WK Rx Instructions: TAKES ON MONDAYS alprazolam 0.25 mg Tablet 0.25 mg PO BID PRN (Reason: Anxiety) loratadine 10 mg Tablet 10 mg PO DAILY Referrals Referrals: Juan Miguel Carroll PA-C [Outside Practitioners] -
[2022-04-09 12:16] LABS: Basophils # (auto) 0.02 K/uL (0-0.2); Basophils % (auto) 0.3 %; Eosinophils # (auto) 0.08 K/uL (0-0.50); Hemoglobin 12.9 g/dl (12.0-16.0); Immature Granulocytes # (auto) 0.05 K/uL (0.00-0.02); Immature Granulocytes % (auto) 0.6 %; Lymphocytes # (auto) 2.77 K/uL (1.2-3.4); Lymphocytes % (auto) 35.5 %; Mean Corpuscular Hemoglobin 28.2 pg (25.0-34.0); Mean Corpuscular Hgb Conc 33.1 g/dL (32.0-36.0); Mean Corpuscular Volume 85.2 fL (80.0-100.0); Mean Platelet Volume 9.7 fL (9.4-12.3); Monocytes # (auto) 0.55 K/uL (0.24-0.82); Monocytes % (auto) 7.1 %; Neutrophils # (auto) 4.33 K/uL (1.4-6.5); Neutrophils % (auto) 55.5 %; Platelet Count 239 K/uL (130-400); RDW Coefficient of Variation 13.5 % (11.5-14.5); RDW Standard Deviation 41.3 fL (36.4-46.3); Red Blood Count 4.58 M/uL (3.93-5.22)
[2022-04-09 12:41] LABS: Albumin Globulin Ratio 1.6 (0.9-2); Albumin Level 4.3 gm/dl (3.4-5.0); BUN Creatinine Ratio 24.2 (10-20); Bilirubin,Total 0.4 mg/dl (0.2-1.0); Calcium 9.9 mg/dl (8.5-10.1); Creatinine Clr Calc Pharmacy 120.9 ml/min; Est GFR (African American) 111.2 ml/min; Globulin 2.7 gm/dl (2.5-4.0); Potassium 4.2 mmol/L (3.5-5.1)
[2022-04-09 12:44] LABS: Troponin I High Sensitivity 6.3 pg/ml (0-14)
--- NOTE | 2022-04-09 12:44 | XRay Report ---
XR chest 1V portable CLINICAL HISTORY: Atypical chest pain. COMPARISON STUDY: Chest radiograph December 24, 2020. Chest CT December 26, 2020. FINDINGS: Lung volumes are mildly diminished. Hypoventilatory study. No pneumothorax or pleural effus ion is present. There is no consolidation to suggest pneumonia. Cardiac size is at the upper limits o f normal. No evidence for overt pulmonary edema. IMPRESSION: No acute cardiopulmonary findings. ACT 112: Negative or not required by law. Electronically signed by: Jaime Haddad M.D. 04/09/2022 12:43 PM
[2022-04-09 14:30] LABS: D Dimer 470 ug/L FEU (0-500)
--- NOTE | 2022-04-09 14:46 | History & Physical Report ---
Date of Service April 09, 2022 Assessment & Plan (1) Chest pain: (2) Tachycardia: (3) Hypertension: Plan: - Admit to tele for observation for r/o - Trend cardiac biomarkers, initial set was negative - EKG reviewed as above - Check 2 D echo - Epic reviewed, appears she was previously ordered this test by PCP in beginning of January, but did not have it done yet - Make n.p.o. at midnight for exercise stress test pending troponins are negative - Start metoprolol tartrate now with 12.5 mg, 25 mg BID --- will hold tomorrow AM dose, then day team to resume metoprolol pending echo completion, Continue losartan - PT/OT consulted - Can consider cardiology consult pending echo results (4) Diabetes mellitus, type 2: Plan: - ISS with accuchecks achs - Will hold her home medications including - Last A1C = 9.3 from 01/10/22, recheck with am labs - Diet and exercise to be encouraged throughout hospital stay (5) Anxiety: Plan: - hx of such, pt is on xanax as outpt - PDMP reviewed - pt reports taking one daily on average, allowed BID. Will continue. (6) GERD (gastroesophageal reflux disease): Plan: - Cont omeprazole (7) Obesity (BMI 30-39.9): Plan: - BMI of 39.3 - encourage weight loss, diet modification, avoid alcohol, exercise for 30 minutes 4x per week. DVT ppx: - teds, scds, heparin subq CODE: Full code Dispo: From home, likely to remain in the hospital x 1-2 days History of Present Illness Chief Complaint: Chest tightness Primary Care Provider: Rula Mullins PA-C This is a 62 yo F with PMhx of HTN, HLD, sinus tachycardia, DM II, Obesity with BMI of 39.3, GERD, who presents to the ER with complaints of not feeling well for the past 24 hours. She reports that yesterday morning she awoke from sleep feeling a substernal chest pressure/heaviness and that it turned into a pain which radiated into her back between her shoulder blades. She then noticed that the pain went into her left arm and lasted for a few minutes and then resolved on its own. She felt not well throughout the morning and had taken her blood pressure which was 170/110 approximately and remained elevated throughout the day despite her taking her normal home medications ( losartan 100 mg). She also noticed that her pulse was elevated at around 107 and remained around that number throughout the day as well. At 1 point yesterday afternoon she took a Xanax tablet 0.25 mg x 1 because she thought maybe it was her anxiety becoming worse, but reports this did nothing for her blood pressure or pulse. She denies any recent stressful situation, changes at work, life situations, etc. that would have prompted worsening anxiety. She admits to recently taking loratadine over the weekend and along with Coricidin OTC medication for seasonal allergies as ragweed season is upon us. She had not taken this medication since earlier last spring. Of note she was seen in December for sinus tachycardia where she was scheduled to have an outpatient echocardiogram however felt better throughout the summer and did not proceed with getting the test completed. Her PCP manages her antihypertensive medications and has never seen a weather observer. Today she presented to the ER because she continued to feel not well, blood pressure remains elevated and her pulses continuously high. Nitropaste was placed on her chest in the ER which reduced her blood pressure slightly, but she remained in sinus tachycardia with heart rate in the 110s. She admits to having a slight posterior headache. She denies any current chest pain, today she reports that when she presses on her sternum she feels that she can slightly reproduce the pain that she was having yesterday. She walks without difficulty, does not use ambulatory device. 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 She did not seek medical care at that time. In the meantime she had significant right hip pain which improved, and right shoulder pain with anterior shoulder flexion. Her range of motion is fully intact however she must move her arm slowly and reports there is still some pain with over the head arm raises. She does not require any pain medication for such. She denies any other falls. Allergies Allergy/AdvReac Type Severity Reaction Status Date / Time No Known Allergies Allergy Unknown Verified 04/09/22 15:16 Home Medications Medication Instructions Recorded Confirmed Type Wheeled Walker #1 ea 12/18/20 04/09/22 Rx diclofenac sodium 75 mg 75 mg PO BID 12/20/20 04/09/22 History tablet,delayed release glipizide 10 mg tablet 10 mg PO BID 12/20/20 04/09/22 History omeprazole 20 mg capsule,delayed 20 mg PO HS 12/20/20 04/09/22 History release vitamins A,C,P-tzht-npkpqp 14,320 1 cap PO BID 12/20/20 04/09/22 History unit-226 mg-200 unit capsule (PreserVision AREDS) alprazolam 0.25 mg tablet 0.25 mg PO BID PRN Anxiety 04/09/22 04/09/22 History loratadine 10 mg tablet 10 mg PO DAILY 04/09/22 04/09/22 History losartan 100 mg tablet 100 mg PO HS 04/09/22 04/09/22 History metformin 500 mg tablet,extended 1,000 mg PO BID 04/09/22 04/09/22 History release 24hr semaglutide 0.25 mg or 0.5 mg (2 0.25 mg subcut WK 04/09/22 04/09/22 History mg/1.5 mL) subcutaneous pen injector (Ozempic) Past Med/Surg History Medical History (Updated 04/09/22 @ 15:14 by Cuong Arizmendi MD) Anxiety Diabetes mellitus, type 2 GERD (gastroesophageal reflux disease) Hypertension Macular degeneration Obesity Osteoarthritis Peripheral neuropathy "MILD" Surgical History Family history of reaction to anesthesia NAUSEA/VOMITTING History of anesthesia reaction SLOW TO WAKE UP History of bilateral tubal ligation History of esophagogastroduodenoscopy (EGD) [place] teeth removed Family History Father Family history of diabetes mellitus Social History Smoking Status: Never smoker Second Hand Exposure: Yes ( A CHILD); Hx Alcohol Use: Yes Preferred Language: Belarusian Communication Ability: Effective Telecom Analyst Required: No Beliefs That Will Affect Care: None Current Living Situation: Spouse Feels Safe at Home: Yes Assistive Devices: Glasses and Walker Review of Systems Review of Systems: Constitutional: No fever, sweats or chills Eyes: No diplopia, no worsening or blurred vision ENT: normal hearing, no trouble swallowing Respiratory: No cough, sputum, dyspnea at rest or on exertion Cardiovascular: As per HPI, currently no chest pain, tightness or palpitations Abdomen: No pain, nausea, vomiting, diarrhea or constipation Musculoskeletal: +Right shoulder joint pain, otherwise no joint pain, no calf pain or swelling Neurologic: No weakness, numbness/tingling, or balance problems Psychiatric: No anxiety or depression Skin: No rash or itch Physical Exam Physical Exam: General: awake, alert, no apparent distress, obese with BMI of 39.3 Head: Normocephalic, atraumatic ENT: PERRL, EOMI, no pharyngeal exudate, mucous membranes moist Chest: Clear to auscultation, on room air, no adventitious breath sounds Cardiac: Sinus tach with HR in the 115 while sitting in bed, no murmur, no JVD, normal peripheral pulses, good capillary refill Abdominal: NABS x 4 quadrants, soft, nondistended, nontender to palpation, no rebound or guarding Extremities: Normal inspection, no peripheral edema or erythema, calfs nontender to palpation Psych: Normal mood and affect Neuro: AAO x 3, strength intact bilaterally and rated 5/5, no motor deficits, speech is clear, no peripheral sensory deficits Results & Data Results & Data ([facility]) Vital Signs (Past 12 Hours) Vital Signs Temp Pulse Pulse Resp BP BP Pulse Ox 04/09/22 14:00 109 H 15 94 04/09/22 14:00 159/98 H 04/09/22 13:50 114 H 13 94 04/09/22 13:40 114 H 15 96 04/09/22 13:30 112 H 13 92 04/09/22 13:30 168/103 H 04/09/22 13:20 114 H 19 93 04/09/22 13:10 110 H 15 95 04/09/22 13:00 111 H 14 94 04/09/22 13:00 167/103 H 04/09/22 12:55 163/110 H 04/09/22 12:55 113 H 13 95 04/09/22 12:50 113 H 12 96 04/09/22 12:50 165/111 H 04/09/22 12:45 170/110 H 04/09/22 12:45 107 H 13 94 04/09/22 12:40 112 H 12 95 04/09/22 12:40 161/113 H 04/09/22 12:35 189/105 H 04/09/22 12:35 107 H 18 95 04/09/22 12:30 111 H 13 95 04/09/22 12:30 161/129 H 04/09/22 12:25 168/99 H 04/09/22 12:25 105 H 18 95 04/09/22 12:22 148/111 H 04/09/22 12:22 109 H 12 95 04/09/22 12:20 108 H 15 95 04/09/22 12:19 177/108 H 04/09/22 12:19 104 H 13 96 04/09/22 12:10 105 H 13 94 04/09/22 12:00 108 H 18 96 04/09/22 12:00 169/111 H 04/09/22 11:50 102 H 12 96 04/09/22 11:42 108 H 19 94 04/09/22 10:45 115 H 20 167/103 H 98 04/09/22 11:42 106 H 10 L 96 04/09/22 11:41 194/125 H 04/09/22 11:23 36.2 C L 110 H 20 205/116 H 96 O2 Del Method O2 Flow Rate 04/09/22 14:00 04/09/22 14:00 04/09/22 13:50 04/09/22 13:40 04/09/22 13:30 04/09/22 13:30 04/09/22 13:20 04/09/22 13:10 04/09/22 13:00 04/09/22 13:00 04/09/22 12:55 04/09/22 12:55 04/09/22 12:50 04/09/22 12:50 04/09/22 12:45 04/09/22 12:45 04/09/22 12:40 04/09/22 12:40 04/09/22 12:35 04/09/22 12:35 04/09/22 12:30 04/09/22 12:30 04/09/22 12:25 04/09/22 12:25 04/09/22 12:22 04/09/22 12:22 04/09/22 12:20 04/09/22 12:19 04/09/22 12:19 04/09/22 12:10 04/09/22 12:00 04/09/22 12:00 04/09/22 11:50 04/09/22 11:42 Room Air 0 04/09/22 10:45 Room Air 04/09/22 11:42 04/09/22 11:41 04/09/22 11:23 Room Air Laboratory Results 04/09/22 04/09/22 04/09/22 14:14 12:03 12:03 WBC RBC Hgb Hct MCV MCH MCHC RDW Std Deviation RDW Coeff of Joel Plt Count MPV Immature Gran % (Auto) Neut % (Auto) Lymph % (Auto) [place] % (Auto) Eos % (Auto) Baso % (Auto) Neut # (Auto) Lymph # (Auto) [place] # (Auto) Eos # (Auto) Baso # (Auto) Immature Gran # (Auto) D-Dimer 470 Sodium 139 Potassium 4.2 Chloride 104 Carbon Dioxide 24 Anion Gap 11 BUN 15 Creatinine 0.62 Est Cr Clr Drug Dosing 120.9 Est GFR ( Amer) 111.2 Est GFR (Non-Af Amer) 96.0 BUN/Creatinine Ratio 24.2 H Glucose 152 H Calcium 9.9 Total Bilirubin 0.4 AST 15 ALT 19 Alkaline Phosphatase 74 Troponin I High Sens 6.3 Total Protein 7.0 Albumin 4.3 Globulin 2.7 Albumin/Globulin Ratio 1.6 Lipase 33 SARS-CoV-2, RNA, NAAT NEGATIVE 04/09/22 12:03 WBC 7.80 RBC 4.58 Hgb 12.9 Hct 39.0 MCV 85.2 MCH 28.2 MCHC 33.1 RDW Std Deviation 41.3 RDW Coeff of Joel 13.5 Plt Count 239 MPV 9.7 Immature Gran % (Auto) 0.6 Neut % (Auto) 55.5 Lymph % (Auto) 35.5 [place] % (Auto) 7.1 Eos % (Auto) 1.0 Baso % (Auto) 0.3 Neut # (Auto) 4.33 Lymph # (Auto) 2.77 [place] # (Auto) 0.55 Eos # (Auto) 0.08 Baso # (Auto) 0.02 Immature Gran # (Auto) 0.05 H D-Dimer Sodium Potassium Chloride Carbon Dioxide Anion Gap BUN Creatinine Est Cr Clr Drug Dosing Est GFR ( Amer) Est GFR (Non-Af Amer) BUN/Creatinine Ratio Glucose Calcium Total Bilirubin AST ALT Alkaline Phosphatase Troponin I High Sens Total Protein Albumin Globulin Albumin/Globulin Ratio Lipase SARS-CoV-2, RNA, NAAT Diagnostic Findings Chest X-Ray 04/09/22 11:42 XR chest 1V portable CLINICAL HISTORY: Atypical chest pain. COMPARISON STUDY: Chest radiograph December 24, 2020. Chest CT December 26, 2020. FINDINGS: Lung volumes are mildly diminished. Hypoventilatory study. No pneumothorax or pleural effusion is present. There is no consolidation to suggest pneumonia. Cardiac size is at the upper limits of normal. No evidence for overt pulmonary edema. IMPRESSION: No acute cardiopulmonary findings. ACT 112: Negative or not required by law. Electronically signed by: Jaime Haddad M.D. 04/09/2022 12:43 PM ECG Additional Comments: 09-APR-2022 11:38:24 [facility]-EDSTAT ROUTINE RETRIEVAL Sinus tachycardia Possible Left atrial enlargement Left axis deviation Abnormal ECG When compared with ECG of 24-DEC-2020 13:55, No significant change was found 25mm/s10mm/[id number] 241 HDCID: 12Referred by: REFERRED SELF Unconfirmed Vent. rate 105 BPM [place] interval 134 ms QRS duration 76 ms QT/QTc 344/454 ms Code Status & VTE Plan Code Status Full code -discussed with the patient at bedside Supervising Physician Co-Signing Physician Notes Attending addendum: The patient was seen and examined in the emergency room in presence of the significant other She is morbidly obese with hypertension presents to ER with chest pain since last night Pain seems to be in central chest with radiation to the left upper extremity but does not have any associated symptoms with it She denies any abdominal pain, nausea and or vomiting. 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
[2022-04-09] MEDS ORDERED: METOPROLOL TARTRATE 25 MG TAB PO ONE (15:45)
[2022-04-09] MEDS ORDERED: GLUCAGON FOR INJ 1 MG VIAL SQ PRN (16:29)
[2022-04-09] MEDS ORDERED: DEXTROSE 50% 50 ML SYRINGE IV PRN (16:29)
[2022-04-09] MEDS ORDERED: ALPRAZolam 0.25 MG TABLET PO PRN (16:29)
[2022-04-09] MEDS ORDERED: GLUCOSE 10 TAB/TUBE PO PRN (16:29)
[2022-04-09] MEDS ORDERED: GLUCOSE 40% GEL 15 GM TUBE PO PRN (16:29)
[2022-04-09] MEDS ORDERED: ACETAMINOPHEN 325 MG TAB PO PRN (16:29)
[2022-04-09] MEDS ORDERED: CARBOHYDRATES FOR HYPOGLYCEMIA PO PRN (16:29)
[2022-04-09] MEDS ORDERED: ONDANSETRON INJ 2 MG/ML 2 ML VIAL IV PRN (16:29)
[2022-04-09] MEDS ORDERED: METOPROLOL TARTRATE 1 MG/ML VIAL IV PRN (16:49)
[2022-04-09] MEDS: INSULIN ASPART PER UNIT SC SCH ×2 (17:11→21:04)
--- NOTE | 2022-04-09 17:57 | Electrocardiogram Report ---
Test Reason : Blood Pressure : / mmHG Vent. Rate : 105 BPM Atrial Rate : 105 BPM P-R Int : 134 ms QRS Dur : 076 ms QT Int : 344 ms P-R-T Axes : 058 -40 049 degrees QTc Int : 454 ms Sinus tachycardia Possible Left atrial enlargement Left axis deviation Abnormal ECG When compared with ECG of 24-DEC-2020 13:55, No significant change was found Confirmed by David Vo ([id number]) on 04/09/2022 5:56:55 PM Referred By: REFERRED SELF Confirmed By:Marv Vo
[2022-04-09] MEDS: HEPARIN SOD 5,000 UNIT/0.5 ML VIAL SQ SCH (20:09)
[2022-04-09] MEDS: CEROVITE ADV FORMULA TAB PO SCH (20:09)
[2022-04-09] MEDS: DICLOFENAC SODIUM 75 MG TABCR PO SCH (20:09)
[2022-04-09] MEDS: LOSARTAN POTASSIUM 50 MG TAB PO SCH (20:10)
[2022-04-09] MEDS: PANTOprazole 40 MG TAB PO SCH (20:10)
[2022-04-09] MEDS ORDERED: METOPROLOL TARTRATE 25 MG TAB PO SCH (21:00)
[2022-04-10 06:09] LABS: Hematocrit (blood only) 37.6 % (34.1-44.9); Hemoglobin 12.7 g/dl (12.0-16.0); Mean Corpuscular Hemoglobin 28.9 pg (25.0-34.0); Mean Corpuscular Hgb Conc 33.8 g/dL (32.0-36.0); Mean Corpuscular Volume 85.6 fL (80.0-100.0); Mean Platelet Volume 9.4 fL (9.4-12.3); Platelet Count 233 K/uL (130-400); RDW Coefficient of Variation 13.7 % (11.5-14.5); RDW Standard Deviation 42.2 fL (36.4-46.3); Red Blood Count 4.39 M/uL (3.93-5.22); White Blood Count 8.34 K/ul (4.8-10.8)
[2022-04-10 06:32] LABS: Alanine Aminotransferase 17 U/L (7-52); Albumin Level 4.1 gm/dl (3.4-5.0); Alkaline Phosphatase 74 U/L (34-104); Anion Gap 7 (3-11); Aspartate Aminotransferase 12 U/L (13-39); BUN Creatinine Ratio 23.8 (10-20); Bilirubin,Total 0.6 mg/dl (0.2-1.0); Blood Urea Nitrogen 20 mg/dl (6-23); Calcium 9.9 mg/dl (8.5-10.1); Carbon Dioxide 28 mmol/L (21-32); Chloride 103 mmol/L (98-107); Cholesterol 210 mg/dl (0-200); Creatinine Clr Calc Pharmacy 88.9 ml/min; Est GFR (African American) 85.7 ml/min; Glucose 164 mg/dl (70-99(Fasting)); HDL Cholesterol 26 mg/dl; Potassium 4.2 mmol/L (3.5-5.1); Sodium 138 mmol/L (136-145); Total Protein 6.6 gm/dl (6.0-8.3); Triglycerides 636 mg/dl (0-150)
[2022-04-10 06:34] LABS: Albumin Globulin Ratio 1.6 (0.9-2); Chol HDL Ratio 8.1 (0-5); Globulin 2.5 gm/dl (2.5-4.0)
[2022-04-10 07:34] LABS: Estimated Average Glucose 192 mg/dl; Hemoglobin A1C 8.3 % (4.5-5.6)
[2022-04-10] MEDS ORDERED: ATORVASTATIN 40 MG TAB PO SCH (09:00)
[2022-04-10] MEDS ORDERED: carvediloL 6.25 MG TAB PO SCH (09:00)
[2022-04-10] MEDS: INSULIN ASPART PER UNIT SC SCH ×4 (09:29→20:15)
[2022-04-10] MEDS: ROSUVASTATIN CALCIUM 20 MG TAB PO SCH (10:07)
[2022-04-10] MEDS: DICLOFENAC SODIUM 75 MG TABCR PO SCH ×2 (10:08→20:22)
[2022-04-10] MEDS: CEROVITE ADV FORMULA TAB PO SCH ×2 (10:08→20:21)
[2022-04-10] MEDS: LORATADINE 10 MG TAB PO SCH (10:08)
[2022-04-10] MEDS: HEPARIN SOD 5,000 UNIT/0.5 ML VIAL SQ SCH ×2 (10:08→20:20)
--- NOTE | 2022-04-10 15:06 | Electrocardiogram Report ---
Test Reason : Blood Pressure : / mmHG Vent. Rate : 098 BPM Atrial Rate : 098 BPM P-R Int : 138 ms QRS Dur : 072 ms QT Int : 366 ms P-R-T Axes : 055 -44 053 degrees QTc Int : 467 ms Normal sinus rhythm Left axis deviation Inferior infarct , age undetermined Poor R wave progression, consider anterior MD vs. lead placement vs. LVH Abnormal ECG When compared with ECG of 09-APR-2022 11:38, No significant change was found Confirmed by David Vo ([id number]) on 04/10/2022 3:06:25 PM Referred By: REFERRED SELF Confirmed By:Marv Vo
--- NOTE | 2022-04-10 15:21 | Discharge Summary ---
Date of Service April 10, 2022 Admission HPI Per Admitting Provider This is a 62 yo F with PMhx of HTN, HLD, sinus tachycardia, DM II, Obesity with BMI of 39.3, GERD, who presents to the ER with complaints of not feeling well for the past 24 hours. She reports that yesterday morning she awoke from sleep feeling a substernal chest pressure/heaviness and that it turned into a pain which radiated into her back between her shoulder blades. She then noticed that the pain went into her left arm and lasted for a few minutes and then resolved on its own. She felt not well throughout the morning and had taken her blood pressure which was 170/110 approximately and remained elevated throughout the day despite her taking her normal home medications ( losartan 100 mg). She also noticed that her pulse was elevated at around 107 and remained around that number throughout the day as well. At 1 point yesterday afternoon she took a Xanax tablet 0.25 mg x 1 because she thought maybe it was her anxiety becoming worse, but reports this did nothing for her blood pressure or pulse. She denies any recent stressful situation, changes at work, life situations, etc. that would have prompted worsening anxiety. She admits to recently taking loratadine over the weekend and along with Coricidin OTC medication for seasonal allergies as ragweed season is upon us. She had not taken this medication since earlier last spring. Of note she was seen in December for sinus tachycardia where she was scheduled to have an outpatient echocardiogram however felt better throughout the summer and did not proceed with getting the test completed. Her PCP manages her antihypertensive medications and has never seen a clammer. Today she presented to the ER because she continued to feel not well, blood pressure remains elevated and her pulses continuously high. Nitropaste was placed on her chest in the ER which reduced her blood pressure slightly, but she remained in sinus tachycardia with heart rate in the 110s. She admits to having a slight posterior headache. She denies any current chest pain, today she reports that when she presses on her sternum she feels that she can slightly reproduce the pain that she was having yesterday. She walks without difficulty, does not use ambulatory device. 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 She did not seek medical care at that time. In the meantime she had significant right hip pain which improved, and right shoulder pain with anterior shoulder flexion. Her range of motion is fully intact however she must move her arm slowly and reports there is still some pain with over the head arm raises. She does not require any pain medication for such. She denies any other falls. Admission Exam Per Admitting Provider General: awake, alert, no apparent distress, obese with BMI of 39.3 Head: Normocephalic, atraumatic ENT: PERRL, EOMI, no pharyngeal exudate, mucous membranes moist Chest: Clear to auscultation, on room air, no adventitious breath sounds Cardiac: Sinus tach with HR in the 115 while sitting in bed, no murmur, no JVD, normal peripheral pulses, good capillary refill Abdominal: NABS x 4 quadrants, soft, nondistended, nontender to palpation, no rebound or guarding Extremities: Normal inspection, no peripheral edema or erythema, calfs nontender to palpation Psych: Normal mood and affect Neuro: AAO x 3, strength intact bilaterally and rated 5/5, no motor deficits, speech is clear, no peripheral sensory deficits Principal Diagnosis 1) Hypertensive Urgency 2) Chest discomfort 3) Hyperlipidemia Discharge Exam General: awake, alert, no apparent distress, obese with BMI of 39.3 Head: Normocephalic, atraumatic ENT: PERRL, EOMI, no pharyngeal exudate, mucous membranes moist Chest: Clear to auscultation, on room air, no adventitious breath sounds Cardiac: S1S2, no murmurs Abdominal: NABS x 4 quadrants, soft, nondistended, nontender to palpation, no rebound or guarding Extremities: Normal inspection, no peripheral edema or erythema, calfs nontender to palpation Psych: Normal mood and affect Neuro: AAO x 3, strength intact bilaterally and rated 5/5, no motor deficits, speech is clear, no peripheral sensory deficits Discharge Data Allergies Allergy/AdvReac Type Severity Reaction Status Date / Time No Known Allergies Allergy Unknown Verified 04/09/22 15:16 Consultations 04/09/22 14:41 ED Decision to Admit Stat Hospital Course (1) Hypertensive urgency: (2) GERD (gastroesophageal reflux disease): (3) Hyperlipidemia: (4) Chest pain: Plan Patient is a 62-year-old male with past medical history of hypertension, hyperlipidemia, type 2 diabetes mellitus, obesity, GERD who present to the ED with complaint of chest discomfort and high blood pressure. Patient was admitted to the floor for further evaluation. EKG was remarkable for sinus tachycardia; no significant ST or T wave changes. High-sensitivity troponin was negative twice. Telemetry did not show any significant events. Patient underwent echo cardiogram which Patient underwent lipid panel test; was found to have triglyceride of 636 and total cholesterol of 210. Patient was previously prescribed Lipitor but had stopped taking it because she had headaches. Patient was started on Coreg at 6.25 mg twice daily. She was also started on rosuvastatin 20 mg once daily. She was asked to follow-up with her primary care doctor with blood pressure reading. Coreg to be titrated up as required as outpatient. Her losartan was continued. Patient was also instructed to have stress test as outpatient. Patient did not have any chest discomfort at discharge. Total Time Total Time Spent Total Time Spent (In Minutes): 35 Discharge Plan Discharge Items Patient Disposition: Home - Self-Care Reason For Visit: HIGH BLOOD PRESSURE, TIGHNESS IN CHEST Discharge Diagnosis: 1) Hypertension 2) Chest pain 3) Tachycardia 4) Type 2 DM Activity: Resume your previous activity Non-emergency contact: Primary Care Provider Call non-emergency contact if: you have any medication questions and your symptoms worsen Follow-up/Referrals: Rula Mullins PA-C [Primary Care Provider] - Diet: Carb Consistent or DM2 Addtl Attending Provider Instructions: You were here for high blood pressure and discomfort in her chest. We are going to add Carvedilol ( 6.25mg twice daily) for blood pressure control. Please continue to monitor your blood pressure daily at home. Follow-up with your primary care doctor with blood pressure recordings. Medications can be titrated based on your blood pressure readings. Discuss with her primary care physician regarding scheduling outpatient stress test. You are also started on rosuvastatin 20 mg once daily. You are found to have high triglycerides and cholesterol. Pending Studies at Discharge: No Stand-Alone Forms: My Plurality, Smoking Cessation Medications and DC Order Prescriptions: New carvedilol 6.25 mg Tablet 6.25 mg PO BID Qty: 60 0RF rosuvastatin [Crestor] 20 mg Tablet 20 mg PO QAM Qty: 30 0RF Continued (DME) Wheelsaurabh Walker Misc See Rx Instructions .MEDSUPPLY Qty: 1 0RF Rx Instructions: As directed glipizide 10 mg Tablet 10 mg PO BID omeprazole 20 mg Capsule,Delayed Release(Dr/Ec) 20 mg PO HS diclofenac sodium 75 mg Tablet,Delayed Release (Dr/Ec) 75 mg PO BID PreserVision AREDS [id number] Capsule 1 cap PO BID losartan 100 mg Tablet 100 mg PO HS metformin 500 mg Tablet Extended Release 24hr 1,000 mg PO BID Ozempic 0.25 mg or 0.5 mg(2 mg/1.5 mL) Pen Injector 0.25 mg SUBCUT WK Rx Instructions: TAKES ON MONDAYS alprazolam 0.25 mg Tablet 0.25 mg PO BID PRN (Reason: Anxiety) loratadine 10 mg Tablet 10 mg PO DAILY Krames/Other Patient Handouts: Managing Type 2 Diabetes Admission Data Admit Date/Time: 04/09/22 14:48 Attending Provider: Zaki Cherry Admit Provider: Denis Randle Primary Care Provider: Rula Mullins Other Providers: Denis Randle ; Katya Reyes
--- NOTE | 2022-04-10 16:27 | Hospitalist Progress Note ---
Date of Service April 10, 2022 Assessment & Plan (1) Hypertensive urgency: Plan: Patient blood pressure on admission was in the range of SBPs 160-1 80 No chest pain, headache or dizziness. Plan; Started on Coreg 6.25; titrated up to 12.5 twice daily. Continue on home losartan. - We will follow-up on the echo. - Continue on telemetry monitoring (2) GERD (gastroesophageal reflux disease): Plan: Continue on Protonix (3) Hyperlipidemia: Plan: Lipid panel done in a.m.; triglyceride 636, total cholesterol 210. Patient was on Lipitor before but discontinued it after 3 days after she had headaches. Will start on rosuvastatin 20 mg once daily. She needs to follow-up with her primary care doctor; may need addition of fibrate's if her triglycerides continue to be over 500. (4) Chest pain: Plan: - Resolved; we will follow-up on echo Stress test as outpatient (5) Diabetes mellitus, type 2: Plan: Continue on sliding scale insulin; POCT glucose in the range of 1 40-199. Admission and Anticipated Discharge Date Admission Date: April 09, 2022 Subjective Patient seen and examined at bedside. She denies any chest discomfort at the moment. Her blood pressure continues to be elevated. Telemetry shows sinus tachycardia in the morning. Her heart rate overnight was around 90s. Review of Systems Review of Systems: All systems reviewed & are unremarkable except as noted in Subjective Physical Exam Physical Exam: General: awake, alert, no apparent distress, obese with BMI of 39.3 Head: Normocephalic, atraumatic ENT: PERRL, EOMI, no pharyngeal exudate, mucous membranes moist Chest: Clear to auscultation, on room air, no adventitious breath sounds Cardiac: S1-S2, no murmur Abdominal: NABS x 4 quadrants, soft, nondistended, nontender to palpation, no rebound or guarding Extremities: Normal inspection, no peripheral edema or erythema, calfs nontender to palpation Psych: Normal mood and affect Neuro: AAO x 3, strength intact bilaterally and rated 5/5, no motor deficits, speech is clear, no peripheral sensory deficit Results & Data Results & Data ([facility]) Vital Signs (Past 12 Hours) Vital Signs Temp Pulse Pulse Resp BP BP Pulse Ox 04/10/22 16:00 36.8 C 88 14 167/100 H 95 04/10/22 12:00 36.8 C 103 H 16 159/99 H 93 04/10/22 08:00 36.7 C 97 H 16 160/93 H 94 04/10/22 07:00 69 O2 Del Method 04/10/22 16:00 Room Air 04/10/22 12:00 Room Air 04/10/22 08:00 Room Air 04/10/22 07:00 Laboratory Results Laboratory Results WBC 8.34 K/ul (4.8-10.8) 04/10/22 05:47 RBC 4.39 M/uL (3.93-5.22) 04/10/22 05:47 Hgb 12.7 g/dl (12.0-16.0) 04/10/22 05:47 Hct 37.6 % (34.1-44.9) 04/10/22 05:47 MCV 85.6 fL (80.0-100.0) 04/10/22 05:47 MCH 28.9 pg (25.0-34.0) 04/10/22 05:47 MCHC 33.8 g/dL (32.0-36.0) 04/10/22 05:47 RDW Std Deviation 42.2 fL (36.4-46.3) 04/10/22 05:47 RDW Coeff of Joel 13.7 % (11.5-14.5) 04/10/22 05:47 Plt Count 233 K/uL (130-400) 04/10/22 05:47 MPV 9.4 fL (9.4-12.3) 04/10/22 05:47 Immature Gran % (Auto) 0.6 % 04/09/22 12:03 Neut % (Auto) 55.5 % 04/09/22 12:03 Lymph % (Auto) 35.5 % 04/09/22 12:03 Clark % (Auto) 7.1 % 04/09/22 12:03 Eos % (Auto) 1.0 % 04/09/22 12:03 Baso % (Auto) 0.3 % 04/09/22 12:03 Neut # (Auto) 4.33 K/uL (1.4-6.5) 04/09/22 12:03 Lymph # (Auto) 2.77 K/uL (1.2-3.4) 04/09/22 12:03 Clark # (Auto) 0.55 K/uL (0.24-0.82) 04/09/22 12:03 Eos # (Auto) 0.08 K/uL (0-0.50) 04/09/22 12:03 Baso # (Auto) 0.02 K/uL (0-0.2) 04/09/22 12:03 Immature Gran # (Auto) 0.05 K/uL (0.00-0.02) H 04/09/22 12:03 D-Dimer 470 ug/L FEU (0-500) 04/09/22 12:03 Sodium 138 mmol/L (136-145) 04/10/22 05:47 Potassium 4.2 mmol/L (3.5-5.1) 04/10/22 05:47 Chloride 103 mmol/L (98-107) 04/10/22 05:47 Carbon Dioxide 28 mmol/L (21-32) 04/10/22 05:47 Anion Gap 7 (3-11) 04/10/22 05:47 BUN 20 mg/dl (6-23) 04/10/22 05:47 Creatinine 0.84 mg/dl (0.6-1.2) 04/10/22 05:47 Est Cr Clr Drug Dosing 88.9 ml/min 04/10/22 05:47 Est GFR ( Amer) 85.7 ml/min 04/10/22 05:47 Est GFR (Non-Af Amer) 74.0 ml/min 04/10/22 05:47 BUN/Creatinine Ratio 23.8 (10-20) H 04/10/22 05:47 Glucose 164 mg/dl (70-99(Fasting)) H 04/10/22 05:47 POC Glucose 199 mg/dl (70-99) H 04/10/22 11:33 Estimat Average Glucose 192 mg/dl 04/10/22 05:47 Hemoglobin A1c 8.3 % (4.5-5.6) H 04/10/22 05:47 Calcium 9.9 mg/dl (8.5-10.1) 04/10/22 05:47 Total Bilirubin 0.6 mg/dl (0.2-1.0) 04/10/22 05:47 AST 12 U/L (13-39) L 04/10/22 05:47 ALT 17 U/L (7-52) 04/10/22 05:47 Alkaline Phosphatase 74 U/L (34-104) 04/10/22 05:47 Troponin I High Sens 6.2 pg/ml (0-14) 04/10/22 05:47 Total Protein 6.6 gm/dl (6.0-8.3) 04/10/22 05:47 Albumin 4.1 gm/dl (3.4-5.0) 04/10/22 05:47 Globulin 2.5 gm/dl (2.5-4.0) 04/10/22 05:47 Albumin/Globulin Ratio 1.6 (0.9-2) 04/10/22 05:47 Triglycerides 636 mg/dl (0-150) H 04/10/22 05:47 Cholesterol 210 mg/dl (0-200) H 04/10/22 05:47 LDL Cholesterol, Calc TNP 04/10/22 05:47 VLDL Cholesterol, Calc TNP 04/10/22 05:47 HDL Cholesterol 26 mg/dl 04/10/22 05:47 Cholesterol/HDL Ratio 8.1 (0-5) H 04/10/22 05:47 Lipase 33 U/L (11-82) 04/09/22 12:03 SARS-CoV-2, RNA, NAAT NEGATIVE (NEGATIVE) 04/09/22 14:14 Impressions Chest X-Ray 04/09/22 11:42 XR chest 1V portable CLINICAL HISTORY: Atypical chest pain. COMPARISON STUDY: Chest radiograph December 24, 2020. Chest CT December 26, 2020. FINDINGS: Lung volumes are mildly diminished. Hypoventilatory study. No pneumoth orax or pleural effusion is present. There is no consolidation to suggest pneumonia. Cardiac size is at the upper limits of normal. No evidence for overt pulmonary edema. IMPRESSION: No acute cardiopulmonary findings. ACT 112: Negative or not required by law. Electronically signed by: Jaime Haddad M.D. 04/09/2022 12:43 PM
[2022-04-10] MEDS ORDERED: FLUTICASONE PROPIONATE NA SPR 16 GM BTL PRN (19:25)
[2022-04-10] MEDS: carvediloL 12.5 MG TAB PO SCH (20:20)
[2022-04-10] MEDS: LOSARTAN POTASSIUM 50 MG TAB PO SCH (20:21)
[2022-04-10] MEDS: PANTOprazole 40 MG TAB PO SCH (20:21)
[2022-04-11] MEDS: INSULIN ASPART PER UNIT SC SCH (08:38)
[2022-04-11] MEDS: DICLOFENAC SODIUM 75 MG TABCR PO SCH (09:51)
[2022-04-11] MEDS: CEROVITE ADV FORMULA TAB PO SCH (09:51)
[2022-04-11] MEDS: LORATADINE 10 MG TAB PO SCH (09:51)
[2022-04-11] MEDS: ROSUVASTATIN CALCIUM 20 MG TAB PO SCH (09:51)
[2022-04-11] MEDS: HEPARIN SOD 5,000 UNIT/0.5 ML VIAL SQ SCH (09:52)
[2022-04-11] MEDS: carvediloL 12.5 MG TAB PO SCH (09:52)
--- NOTE | 2022-04-11 15:11 | Discharge Summary ---
Date of Service April 11, 2022 Admission HPI Per Admitting Provider This is a 62 yo F with PMhx of HTN, HLD, sinus tachycardia, DM II, Obesity with BMI of 39.3, GERD, who presents to the ER with complaints of not feeling well for the past 24 hours. She reports that yesterday morning she awoke from sleep feeling a substernal chest pressure/heaviness and that it turned into a pain which radiated into her back between her shoulder blades. She then noticed that the pain went into her left arm and lasted for a few minutes and then resolved on its own. She felt not well throughout the morning and had taken her blood pressure which was 170/110 approximately and remained elevated throughout the day despite her taking her normal home medications ( losartan 100 mg). She also noticed that her pulse was elevated at around 107 and remained around that number throughout the day as well. At 1 point yesterday afternoon she took a Xanax tablet 0.25 mg x 1 because she thought maybe it was her anxiety becoming worse, but reports this did nothing for her blood pressure or pulse. She denies any recent stressful situation, changes at work, life situations, etc. that would have prompted worsening anxiety. She admits to recently taking loratadine over the weekend and along with Coricidin OTC medication for seasonal allergies as ragweed season is upon us. She had not taken this medication since earlier last spring. Of note she was seen in December for sinus tachycardia where she was scheduled to have an outpatient echocardiogram however felt better throughout the summer and did not proceed with getting the test completed. Her PCP manages her antihypertensive medications and has never seen a plaster applicator. Today she presented to the ER because she continued to feel not well, blood pressure remains elevated and her pulses continuously high. Nitropaste was placed on her chest in the ER which reduced her blood pressure slightly, but she remained in sinus tachycardia with heart rate in the 110s. She admits to having a slight posterior headache. She denies any current chest pain, today she reports that when she presses on her sternum she feels that she can slightly reproduce the pain that she was having yesterday. She walks without difficulty, does not use ambulatory device. 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 She did not seek medical care at that time. In the meantime she had significant right hip pain which improved, and right shoulder pain with anterior shoulder flexion. Her range of motion is fully intact however she must move her arm slowly and reports there is still some pain with over the head arm raises. She does not require any pain medication for such. She denies any other falls. Admission Exam Per Admitting Provider General: awake, alert, no apparent distress, obese with BMI of 39.3 Head: Normocephalic, atraumatic ENT: PERRL, EOMI, no pharyngeal exudate, mucous membranes moist Chest: Clear to auscultation, on room air, no adventitious breath sounds Cardiac: Sinus tach with HR in the 115 while sitting in bed, no murmur, no JVD, normal peripheral pulses, good capillary refill Abdominal: NABS x 4 quadrants, soft, nondistended, nontender to palpation, no rebound or guarding Extremities: Normal inspection, no peripheral edema or erythema, calfs nontender to palpation Psych: Normal mood and affect Neuro: AAO x 3, strength intact bilaterally and rated 5/5, no motor deficits, sp eech is clear, no peripheral sensory deficits Principal Diagnosis 1) Hypertensive urgency 2) Hyperlipidemia 3) Chest pain 4) Type 2 DM Discharge Exam General: awake, alert, no apparent distress, obese with BMI of 39.3 Head: Normocephalic, atraumatic ENT: PERRL, EOMI, no pharyngeal exudate, mucous membranes moist Chest: Clear to auscultation, on room air, no adventitious breath sounds Cardiac: S1-S2, no murmur Abdominal: NABS x 4 quadrants, soft, nondistended, nontender to palpation, no rebound or guarding Extremities: Normal inspection, no peripheral edema or erythema, calfs nontender to palpation Psych: Normal mood and affect Neuro: AAO x 3, strength intact bilaterally and rated 5/5, no motor deficits, speech is clear, no peripheral sensory deficit Discharge Data Allergies Allergy/AdvReac Type Severity Reaction Status Date / Time No Known Allergies Allergy Unknown Verified 04/09/22 15:16 Consultations 04/09/22 14:41 ED Decision to Admit Stat Hospital Course (1) Hypertensive urgency: (2) GERD (gastroesophageal reflux disease): (3) Hyperlipidemia: (4) Chest pain: (5) Diabetes mellitus, type 2: Plan Patient is a 62-year-old female with past medical history of hypertension, hyperlipidemia, type 2 diabetes mellitus, obesity who presented to the ED with complaint of chest tightness and high blood pressure. Patient checked her blood pressure at home and was found to have blood pressure of 170/110 with a heart rate of 107. At presentation to the ED, patient was hypertensive, tachycardic and was saturating well on room air. EKG showed sinus rhythm with no significant ST or T wave changes. High sensitive troponin was negative twice. Patient was admitted to telemetry floor for further monitoring. Patient was started on Coreg 6.25 twice daily for high blood pressure which was titrated up to 12.5 twice daily during her stay. Patient's losartan was continued throughout the admission. Telemetry monitoring showed sinus tachycardia; no abnormal rhythm. Patient was also found to have hypertriglyceridemia and hypercholesterolemia for which she was started on rosuvastatin. Echo was performed. Patient echo was not able to be uploaded in the system; results was printed out and was given to the patient. She had a EF of 60 to 65%, no wall motion abnormalities with grade 1 diastolic dysfunction. She was asked to follow-up with her primary care doctor to uptitrate her antihypertensives. She was also instructed to have stress test as outpatient. Total Time Total Time Spent Total Time Spent (In Minutes): 35 Total Time Includes: Examination of the Patient, Discharge Planning, Medication Reconciliation, Communication With Other Providers and Other Discharge Plan Discharge Items Patient Disposition: Home - Self-Care Reason For Visit: HIGH BLOOD PRESSURE, TIGHNESS IN CHEST Discharge Diagnosis: 1) Hypertension 2) Chest pain 3) Tachycardia 4) Type 2 DM Activity: Resume your previous activity Non-emergency contact: Primary Care Provider Call non-emergency contact if: you have any medication questions and your symptoms worsen Follow-up/Referrals: Rula Mullins PA-C [Primary Care Provider] - Diet: Carb Consistent or DM2 Addtl Attending Provider Instructions: You were here for high blood pressure and discomfort in her chest. We are going to add Carvedilol (12.5 mg twice daily) for blood pressure control. Please continue to monitor your blood pressure daily at home. Follow-up with your primary care doctor with blood pressure recordings. Medications can be titrated based on your blood pressure readings. Discuss with her primary care physician regarding scheduling outpatient stress test. You are also started on rosuvastatin 20 mg once daily. You are found to have high triglycerides and cholesterol. Pending Studies at Discharge: No Stand-Alone Forms: My [facility], Smoking Cessation Medications and DC Order Prescriptions: New rosuvastatin [Crestor] 20 mg Tablet 20 mg PO QAM Qty: 30 0RF carvedilol 12.5 mg Tablet 12.5 mg PO BID Qty: 60 0RF Continued (DME) Wheeled Walker Misc See Rx Instructions .MEDSUPPLY Qty: 1 0RF Rx Instructions: As directed glipizide 10 mg Tablet 10 mg PO BID omeprazole 20 mg Capsule,Delayed Release(Dr/Ec) 20 mg PO HS diclofenac sodium 75 mg Tablet,Delayed Release (Dr/Ec) 75 mg PO BID PreserVision AREDS [id number]-dl-obeb Capsule 1 cap PO BID losartan 100 mg Tablet 100 mg PO HS metformin 500 mg Tablet Extended Release 24hr 1,000 mg PO BID Ozempic 0.25 mg or 0.5 mg(2 mg/1.5 mL) Pen Injector 0.25 mg SUBCUT WK Rx Instructions: TAKES ON MONDAYS alprazolam 0.25 mg Tablet 0.25 mg PO BID PRN (Reason: Anxiety) loratadine 10 mg Tablet 10 mg PO DAILY Discharge Orders: Discharge Order (Routine); Ordered 04/11/22 Ordered By: Zaki Richardson/Other Patient Handouts: Managing Type 2 Diabetes Admission Data Admit Date/Time: 04/09/22 14:48 Attending Provider: Zaki Cherry Admit Provider: Denis Randle Primary Care Provider: Rula Mullins Other Providers: Denis Randle ; Katya Reyes Other Interventions: Discharge Summary Assessment (RN) Last Done: 04/11/22 10:06
== END 2022-04-11 10:57 | disposition home or self-care (01) ==
LOC: ED 10:45 → 4W 10:45 → SUATTDRO 14:48 → 4W 16:28